=== PATIENT | female | born 1930 | race Hispanic/Latino ===

== ENCOUNTER 2017-12-19 08:39 | Emergency (ER) | payer MEDICARE ==
[2017-12-19 09:33] LABS: #Eosinphils 0.1 thou/uL (0.0-0.7); #Lymphocytes 0.9 thou/uL (1.20-3.40); #Monocytes 0.5 thou/uL (0.11-0.59); #Neutrophils 6.5 thou/uL (1.40-6.50); %Basophils 0.3 % (0.0-1.0); %Eosinophils 1.2 % (0.0-10.0); %Lymphocytes 11.1 % (21.0-51.0); %Neutrophils 81.5 % (42.0-75.0); Mean Corpuscular HGB CONC 33.5 g/dL (32.0-36.0); Mean Corpuscular Hemoglobin 31.8 pg (27.0-31.0); Mean Corpuscular Volume 94.9 fL (78.0-98.0); Mean Platelet Volume 7.3 fL (7.4-10.4); Platelet Count 183 thou/uL (130-400); RBC Distribution Width 12.4 % (11.5-14.5); Red Blood Cell (RBC) Count 4.09 mill/uL (4.20-5.40); White Blood Cell (WBC) Count 7.9 thou/uL (4.8-10.8)
--- NOTE | 2017-12-19 09:44 | RAD ---
FRONTAL VIEW PELVIS: Date: 12/19/17 INDICATION: Injury, pain. No prior comparison. FINDINGS: There is a slight degree of cortical irregularity at the right pubic body. There is osseous demineral ization. Hip joints are maintained. Scattered degenerative change present. IMPRESSION: Minimally displaced fracature at the right pubic body. POS: [facility]
[2017-12-19 09:45] LABS: PTT 29.8 SEC (22.9-36.1); Prothrombin Time 13.5 SEC (12.0-14.7)
--- NOTE | 2017-12-19 09:46 | RAD ---
RIGHT HIP 2 VIEWS: Date: 12/19/17 INDICATION: Post-traumatic pain. Injury. FINDINGS: There is a subtle degree of cortical irregularity at the right pubic body. The right hip joint is dino ntained. There is osseous degenerative change and demineralization. IMPRESSION: 1. No acute fracture of the right hip. 2. Mild cortical irregularity at the right pubic body indicating minimally displaced fracture. POS: [facility]
[2017-12-19 09:50] LABS: ALT (SGPT) 22 U/L (8-55); AST (SGOT) 34 U/L (5-34); Alkaline Phosphatase 80 U/L (40-150); Anion Gap 10 mmol/L (10-20); BUN (Urea Nitrogen) 11 mg/dL (9.8-20.1); Bilirubin, Total 0.5 mg/dL (0.2-1.2); Calc. Creatinine Clearance 0 mL/min (70-130); Calcium 8.7 mg/dL (7.8-10.44); Carbon Dioxide 25 mmol/L (23-31); Chloride 95 mmol/L (98-107); Estimated GFR-MDRD 81; Glucose 98 mg/dL (83-110); Potassium 3.9 mmol/L (3.5-5.1); Sodium 126 mmol/L (136-145)
--- NOTE | 2017-12-19 09:55 | RAD ---
RIGHT ELBOW 4 VIEWS: Date: 12/19/17 HISTORY: Injury and pain. FINDINGS: Bones are osteopenic. No evidence of fracture. No evidence of joint effusion. IMPRESSION: No acute fracture identified. POS: [facility]
--- NOTE | 2017-12-19 09:56 | RAD ---
RIGHT THUMB 3 VIEWS: Date: 12/19/17 HISTORY: Injury and pain. FINDINGS: There is a linear fracture through the distal phalanx of the right thumb. There is no displacement. T he fracture is somewhat oblique, extending through the tuft of the distal phalanx. IMPRESSION: Nondisplaced fracture distal phalanx right thumb. POS: [facility]
--- NOTE | 2017-12-19 10:11 | RAD ---
PORTABLE CHEST: Date: 12/19/17 HISTORY: Injury. FINDINGS: Lung lopez are well aerated and are clear. Heart and mediastinum unremarkable with prominent aortic calcification noted. The osseous structures appear intact. IMPRESSION: No acute abnormality identified. POS: [facility]
--- NOTE | 2017-12-19 10:45 | CT ---
CT BRAIN WITHOUT CONTRAST: Date: 12/19/17 HISTORY: Fall. Trauma to head. Headache. FINDINGS: There are changes of cortical atrophy and chronic small vessel ischemic disease. The ventricular size is appropriate and the basilar cisterns are patent. No evidence of infarct, hemorrhage, midline shif t, or abnormal extra-axial fluid collections are seen. The bony calvarium is intact. The visualized p aranasal sinuses and mastoid air cells are well aerated. There is a scalp contusion in the right post erior parietal region close to the vertex. IMPRESSION: No CT evidence of acute intracranial process. POS: [facility]
--- NOTE | 2017-12-19 11:10 | CT ---
CT CERVICAL SPINE WITHOUT CONTRAST: Date: 12/19/17 HISTORY: Patient was walking and tripped over dog. Fall. Post-traumatic pain. COMPARISON: None. TECHNIQUE: Noncontrast CT cervical spine is performed in the axial plane. Reformatted images are submitted for i nterpretation. FINDINGS: There are nonspecific calcifications in the left and right neck soft tissues. There is no prevertebra l soft tissue swelling. There is atherosclerosis of the visualized great vessels of the neck. There are varying degrees of central canal stenosis and foraminal narrowing on the basis of degenerat everett change. Right thyroid lobe is mildly heterogeneous. Left thyroid lobe is unremarkable. There is a pleural based opacity in the right lung apex, incompletely evaluated. There is diffuse mild bone demineralization. No craniocervical dissociation. Lateral masses of C1 and C2 articulate appropriately. Appropriate art iculation of the facets. There is mild degenerative change of the facets. Predental space is normal. Cervical spine vertebral body height is maintained. There is no fracture. There is mild loss of vertebral body height at T4, which is felt to be chronic. IMPRESSION: 1. No fracture. Additional findings as above. 2. Pleural based opacity in the right lung apex, incompletely evaluated. POS: [facility]
[2017-12-19] MEDS ORDERED: Lidocaine 1% (PF) 30 ML VIAL ONE (13:23)
[2017-12-19] MEDS ORDERED: Adacel (T-DAP) 0.5 ML VIAL ONE (14:00)
[2017-12-19] MEDS ORDERED: Acetaminophen 325 MG TAB ONE (14:00)
== END 2017-12-19 15:00 | disposition home or self-care (01) ==
LOC: ERS 08:39
DX: S09.90XA Unspecified injury of head, initial encounter (principal); S32.501A Unspecified fracture of right pubis, initial encounter for closed fracture; S51.011A Laceration without foreign body of right elbow, initial encounter; S62.524A Nondisplaced fracture of distal phalanx of right thumb, initial encounter for closed fracture; I10 Essential (primary) hypertension; E78.5 Hyperlipidemia, unspecified; W01.0XXA Fall on same level from slipping, tripping and stumbling without subsequent striking against object, initial encounter
CPT/HCPCS: 12001; 36415; 70450; 71045; 72125; 72170; 80053; 85025; 85610; 85730; 90471; 90715; 93005; J2001

== ENCOUNTER 2018-01-15 07:34 | Emergency (ER) | payer MEDICARE ==
[2018-01-15 08:03] LABS: Bilirubin Negative (Negative); Blood, Urine Negative (Negative); Clarity CLOUDY (Clear); Glucose, Urine (Dipstick) Negative (Negative); Leukocyte Moderate (Negative); Nitrite Positive (Negative); Protein, Urine (Dipstick) Negative (Neg-Trace); Specific Gravity, Urine 1.006 (1.002-1.036); Urobilinogen 0.2 mg/dL (0.2-1.0)
[2018-01-15 08:04] LABS: Bacteria/HPF 1+ HPF (None Seen); Hyaline Casts/LPF 0-3 HYALINE CAST LPF (0-3 Hyaline); RBC/HPF 0-3 HPF (0-3); Squamous Epithelial None Seen HPF (0-3); WBC/HPF 21-50 HPF (0-3)
--- NOTE | 2018-01-15 09:20 | RAD ---
PELVIC RADIOGRAPH: Date: 01-15-18 Provided Clinical History: Left lower back pain status post fall. Comparison: 12-19-17 FINDINGS: The left iliac wing is not well visualized on the basis of artifact. The left greater trochanter is i ncompletely included on the image. There is subtle cortical irregularity and lucency involving the ri ght inferior pubic ramus and junction of left superior pubic ramus with acetabulum suspicious for fra cture. No additional fracture is evident. IMPRESSION: Nondisplaced right superior and inferior pubic rami fractures. POS: [facility]
== END 2018-01-15 09:10 | disposition home or self-care (01) ==
LOC: ERS 07:34
DX: N30.90 Cystitis, unspecified without hematuria (principal); M54.5 Low back pain; I10 Essential (primary) hypertension; E78.5 Hyperlipidemia, unspecified; Z79.899 Other long term (current) drug therapy
CPT/HCPCS: 51701; 72170; 81003; 81015; A4353

== ENCOUNTER 2020-01-29 10:43 | Emergency (ER) | payer MEDICARE, BC ==
[2020-01-29] MEDS ORDERED: Ketorolac Tromethamine 30 MG/ML VIAL ONE (11:56)
[2020-01-29] MEDS ORDERED: Ondansetron PF 4 MG/2 ML Vial ONE (11:56)
--- NOTE | 2020-01-29 12:59 | RAD ---
Exam: Chest one view HISTORY:Abdominal pain Comparison: 12/19/2017 FINDINGS: Cardiac silhouette:Enlarged Aorta: Atherosclerosis and elongation Pulmonary vessels: Normal Costophrenic angles: Clear LUNGS: Hyperinflation. Chronic changes. Pneumothorax: None Osseous abnormalities: No acute osseous abnormalities IMPRESSION: 1. COPD. Hyperinflation. 2. Atherosclerosis and elongation of the aorta.
[2020-01-29 13:16] LABS: #Basophils 0.1 thou/uL (0.0-0.2); #Lymphocytes 0.3 thou/uL (1.20-3.40); #Monocytes 0.4 thou/uL (0.11-0.59); #Neutrophils 10.2 thou/uL (1.40-6.50); %Basophils 0.9 % (0.0-1.0); %Lymphocytes 2.5 % (21.0-51.0); %Monocytes 3.9 % (0.0-10.0); %Neutrophils 92.7 % (42.0-75.0); Hemoglobin 15.4 g/dL (12.0-16.0); Mean Corpuscular HGB CONC 33.9 g/dL (32.0-36.0); Mean Corpuscular Hemoglobin 32.4 pg (27.0-31.0); Mean Corpuscular Volume 95.6 fL (78.0-98.0); Mean Platelet Volume 7.9 fL (7.4-10.4); Platelet Count 220 thou/uL (130-400); Red Blood Cell (RBC) Count 4.74 mill/uL (4.20-5.40)
[2020-01-29 13:31] LABS: ALT (SGPT) 16 U/L (8-55); AST (SGOT) 31 U/L (5-34); Alkaline Phosphatase 97 U/L (40-110); Anion Gap 15 mmol/L (10-20); BUN (Urea Nitrogen) 19 mg/dL (9.8-20.1); Bilirubin, Total 0.7 mg/dL (0.2-1.2); Calc. Creatinine Clearance 0 mL/min (70-130); Calcium 9.3 mg/dL (7.8-10.44); Carbon Dioxide 23 mmol/L (23-31); Chloride 91 mmol/L (98-107); Estimated GFR-MDRD 69; Globulin 3.4 g/dL (2.4-3.5); Glucose 122 mg/dL (83-110); Lipase 12 U/L (8-78); Magnesium 2.1 mg/dL (1.6-2.6); Protein, Total 7.4 g/dL (6.0-8.3); Sodium 125 mmol/L (136-145)
[2020-01-29] MEDS ORDERED: Ciprofloxacin 500 MG TAB ONE (14:55)
[2020-01-29] MEDS ORDERED: Aspirin 81 mg Enteric Coated Tablet ONE (14:55)
[2020-01-29] MEDS ORDERED: metroNIDAZOLE 500 MG/100 ML BAG ONE (14:55)
--- NOTE | 2020-01-29 15:09 | CT ---
ABDOMEN AND PELVIC CT SCAN WITH IV CONTRAST: History: Left lower quadrant pain, chills, nausea, vomiting, diarrhea. FINDINGS: Evidence for moderate sized hiatal hernia. Increased linear and interstitial parenchymal changes bila terally with some minimal honeycombing, nonspecific but more favored to be related to some underlying chronic interstitial lung disease. The liver and gallbladder and pancreas appear within normal limit s. The spleen is unremarkable. No evidence for renal hydronephrosis. There is very marked abnormal co lonic wall thickening with pericolonic fat stranding involving most of the left colon from below the level of the splenic flexure down into the rectosigmoid junction region. In the sigmoid colon there a re some diverticulosis changes. There is some minimal free fluid in the abdomen and pelvis. This abno rmal appearance of the colon has more the appearance of acute nonspecific colitis rather than diverti culosis or underlying neoplasm although follow up colonoscopy should be considered after treatment fo r acute colitis and resolution of symptoms to ensure that there is no associated underlying neoplasm. No CT evidence for acute appendicitis. IMPRESSION: Very extensive colonic wall thickening involving the lower left colon into the sigmoid and rectal sig moid junction region, favored to be some type of nonspecific colitis including inflammatory, or infec tious, or even ischemic colitis. There are a few diverticulosis changes in the sigmoid colon but give n this long segment of abnormality I would favor this being colitis rather than diverticulitis. Minim al free fluid. Evidence for hiatal hernia. Other findings as above. POS: [facility]
[2020-01-29 16:21] LABS: Lactic Acid 1.7 mmol/L (0.5-2.2)
--- NOTE | 2020-02-22 14:34 | EKG ---
Test Reason : ABD PAIN Blood Pressure : / mmHG Vent. Rate : 080 BPM Atrial Rate : 080 BPM P-R Int : 162 ms QRS Dur : 080 ms QT Int : 384 ms P-R-T Axes : 050 -04 020 degrees QTc Int : 442 ms Sinus rhythm with frequent Premature ventricular complexes Otherwise normal ECG Confirmed by BRIGHT LANGFORD DO ([id number]), primer expeditor and drier GAVI CAMERON ([id number] on 02/22/2020 2:34:17 PM Referred By: Confirmed By:BRIGHT LANGFORD DO
== END 2020-01-29 16:55 | disposition home or self-care (01) ==
LOC: ERS 10:43
DX: K52.9 Noninfective gastroenteritis and colitis, unspecified (principal); I10 Essential (primary) hypertension; E78.5 Hyperlipidemia, unspecified; Z79.899 Other long term (current) drug therapy
CPT/HCPCS: 36415; 71045; 74177; 80053; 83605; 83690; 83735; 85025; 93005; 96361; 96365; 96375; J1885; J2405

== ENCOUNTER 2020-04-14 19:03 | Inpatient (IN) | payer MEDICARE, BC ==
--- NOTE | 2020-04-14 19:35 | RAD ---
XR Hip Lt 2-3 View INDICATION: Fall with left hip pain COMPARISON: Prior pelvic radiograph dated March 17, 2018 FINDINGS: Bones: There is diffuse osteopenia. No displaced fracture is evident. There is healed right obturator ring fractures. There is enthesopathic change off of the left ischial tuberosity. Hip joint: There is mild osteoarthrosis of the left hip joint. SI joints and symphysis pubis: Radiographically normal. Intrapelvic contents: There are vascular calcifications within the pelvis. Surrounding soft tissues: There are mild vascular calcifications seen involving the visualized vascul ature. IMPRESSION: 1. No acute osseous abnormality. 2. Healed right obturator ring fractures
--- NOTE | 2020-04-14 19:38 | RAD ---
AP view of the pelvis INDICATION: Fall COMPARISON: Prior exam dated January 15, 2018 FINDINGS: Bones: There is diffuse osteopenia. There is healed deformities involving the right obturator ring. Hips: There is mild degenerative change of both hips SI joints and symphysis pubis: There is mild degenerative change of the symphysis pubis and SI joints . Intrapelvic contents: There are moderate vascular calcifications seen involving the visualized vascul ature. IMPRESSION: No acute osseous abnormality.
--- NOTE | 2020-04-14 19:39 | RAD ---
Chest AP view INDICATION: Fall COMPARISON: December 19, 2017 FINDINGS: Lungs: Chronic lung changes are stable Cardiac silhouette: The cardiomediastinal silhouette appears within normal limits. Pulmonary vasculature: Normal Pleural spaces: No pleural effusion or pneumothorax is demonstrated. Upper abdomen: There are moderate vascular calcifications seen involving the visualized vasculature. Osseous structures: There is diffuse osteopenia. There is stable healed deformity involving the prox imal right humeral shaft. There is thoracolumbar scoliosis. Additional findings: None. IMPRESSION: No acute cardiopulmonary abnormality.
[2020-04-14 19:58] LABS: #Lymphocytes 0.6 thou/uL (1.20-3.40); #Monocytes 0.4 thou/uL (0.11-0.59); #Neutrophils 4.6 thou/uL (1.40-6.50); %Basophils 0.3 % (0.0-1.0); %Eosinophils 0.8 % (0.0-10.0); %Lymphocytes 10.9 % (21.0-51.0); %Monocytes 6.3 % (0.0-10.0); %Neutrophils 81.7 % (42.0-75.0); Hemoglobin 12.6 g/dL (12.0-16.0); Mean Corpuscular HGB CONC 34.1 g/dL (32.0-36.0); Mean Corpuscular Hemoglobin 32.1 pg (27.0-31.0); Mean Corpuscular Volume 94.1 fL (78.0-98.0); Mean Platelet Volume 7.7 fL (7.4-10.4); Platelet Count 216 thou/uL (130-400); RBC Distribution Width 12.8 % (11.5-14.5); Red Blood Cell (RBC) Count 3.93 mill/uL (4.20-5.40); White Blood Cell (WBC) Count 5.7 thou/uL (4.8-10.8)
[2020-04-14 20:25] LABS: ALT (SGPT) 16 U/L (8-55); AST (SGOT) 31 U/L (5-34); Alkaline Phosphatase 87 U/L (40-110); Anion Gap 15 mmol/L (10-20); BUN (Urea Nitrogen) 17 mg/dL (9.8-20.1); Bilirubin, Total 0.3 mg/dL (0.2-1.2); Calc. Creatinine Clearance 0 mL/min (70-130); Calcium 8.3 mg/dL (7.8-10.44); Carbon Dioxide 21 mmol/L (23-31); Chloride 94 mmol/L (98-107); Estimated GFR-MDRD 76; Globulin 3.1 g/dL (2.4-3.5); Glucose 106 mg/dL (83-110); Potassium 3.9 mmol/L (3.5-5.1); Protein, Total 7.1 g/dL (6.0-8.3); Sodium 126 mmol/L (136-145)
--- NOTE | 2020-04-14 20:35 | CT ---
CT Brain WO Con: 04/14/2020 8:20 PM CLINICAL HISTORY: Fall. IMAGING TECHNIQUE: Multiple CT images were obtained of the brain without IV contrast. COMPARISON: Prior exam dated December 19, 2017 FINDINGS: BRAIN: Evidence of acute infarct: None. Evidence of chronic ischemic change:There is worsening moderate chronic small vessel white matter isc hemic change. There is an interval remote lacunar infarct involving the right globus pallidus. There is generalized cerebral and cerebellar atrophy. Evidence of intracranial hemorrhage: None. Evidence of midline shift: Third ventricle and septum pellucidum are midline. Ventricles: Normal. No hydrocephalus. SKULL: Intact. VISUALIZED PARANASAL SINUSES: There is mild mucosal thickening involving the ethmoid air cells. MASTOID AIR CELLS: Clear. EXTRACRANIAL SOFT TISSUES: Normal. IMPRESSION: 1. No acute intracranial abnormality. 2. Worsening moderate chronic small vessel white matter ischemic change with an interval remote lacun ar infarct involving the right globus pallidus. 3. Mild to moderate generalized cerebral and cerebellar atrophy.
--- NOTE | 2020-04-14 20:38 | CT ---
CT Cervical Spine WO Con Indication: Fall with neck injury COMPARISON: Prior CT cervical spine dated December 19, 2017 FINDINGS: Fracture: None. Spinal alignment: Slight anterior translation of C4-C5 is stable and likely degenerative. Craniocervical junction: Within normal limits. Vertebral body heights: Maintained. Cervical spine degenerative change: Mild spondylosis of the cervical spine is similar. Lung apices: Stable mild pleural parenchymal scarring. Calcifications involving the soft tissues of t he parotid region are stable. IMPRESSION: No acute osseous abnormality.
[2020-04-14 20:52] LABS: Bacteria/HPF 4+ HPF (None Seen); Bilirubin Negative (Negative); Blood, Urine Trace (Negative); Clarity Clear (Clear); Glucose, Urine (Dipstick) Normal (Negative); Ketone, Urine Negative (Negative); Leukocyte 25 Leu/uL (Negative); Nitrite 2+ (Negative); Protein, Urine (Dipstick) 20 mg/dL (Neg-Trace); RBC/HPF 0-3 HPF (0-3); Renal Epithelial 0-3 HPF (None Seen); Squamous Epithelial 0-3 HPF (0-3); Urobilinogen Normal mg/dL (Less than 2); pH, Urine 7.5 (5.0-9.0)
[2020-04-14] MEDS ORDERED: Aspirin Chewable 81 MG TAB ONE (21:05)
[2020-04-14] MEDS ORDERED: cefTRIAXone\\ROCEPHIN 2 GM VIAL ONE (21:05)
[2020-04-14 21:39] LABS: Magnesium 1.8 mg/dL (1.6-2.6)
[2020-04-14 21:55] LABS: Phosphorus 2.5 mg/dL (2.3-4.7)
[2020-04-14 23:13] LABS: Troponin I 0.017 ng/mL (< 0.028)
[2020-04-14] MEDS ORDERED: Ondansetron ODT 4 MG TAB SL PRN (23:45)
[2020-04-14] MEDS ORDERED: Acetaminophen 325 MG TAB PO PRN (23:45)
[2020-04-14] MEDS ORDERED: Ondansetron PF 4 MG/2 ML Vial IVP PRN (23:45)
[2020-04-14] MEDS ORDERED: Sodium Chloride 0.9% 1,000 ML IV SCH (23:45)
[2020-04-15] MEDS ORDERED: HYDROcodone/Acetaminophen 5/325 mg Tablet PO PRN ×2 (00:22→15:17)
[2020-04-15] MEDS ORDERED: Acetaminophen 650 MG Suppository PR PRN (00:22)
--- NOTE | 2020-04-15 00:41 | PDOC.HHP ---
Hospitalist HPI - History of Present Illness fall History of Present Illness: Case of an 89y/o female with pmhx of htn and hld who comes to hospital complaining of hip pain. apparently was on her usual state of health patient after fall prior at 4 PM today. The patient reports she was walking out to her mailbox when she stepped on unlevel ground and lost her balance, falling backwards and landing on her left hip and her head. The patient denies any LOC, dizziness, syncope, nausea, vomiting, chest pain, shortness of breath, palpitations, abdominal pain, numbness, tingling, weakness, or other symptoms at this time. Patient reports she did hit her head but is not having any pain to her head or neck at this time. Patient denies being on any blood thinners. Patient lives with her son however during the day she reports she is alone. She states that she was on the ground for 2.5 hours. Hospitalist ROS - Review of Systems All other systems reviewed; all pertinent +/- noted in HPI/Subj - Medication Medications: Active Medications Generic Name Dose Route Start Last Admin Trade Name Freq PRN Reason Stop Dose Admin Acetaminophen 650 mg 04/14/20 23:45 04/15/20 00:20 Acetaminophen 325 Mg Tab PO 04/15/20 10:00 650 mg Q4H PRN Administration Headache/Fever or Pain Ondansetron HCl 4 mg 04/14/20 23:45 04/15/20 00:21 Ondansetron Odt 4 Mg Tab SL 04/15/20 10:00 4 mg Q6H PRN Administration Nausea/Vomiting Hospitalist History - Past Surgical History Past Surgical History: reports: Cataract Removal - Family History Family History: reports: no pertinent history - Social History Smoking Status: Never smoker Alcohol: reports: None Drugs: reports: none - Exam General Appearance: NAD, awake alert Eye: PERRL, anicteric sclera ENT: normocephalic atraumatic, no oropharyngeal lesions Neck: supple, symmetric, no JVD, no thyromegaly Heart: RRR, no murmur, no gallops, no rubs Respiratory: CTAB, no wheezes, no rales Gastrointestinal: soft, non-tender, non-distended, normal bowel sounds Extremities: no cyanosis, no clubbing, no edema Skin: normal turgor, no lesions, no rashes Neurological: cranial nerve grossly intact, normal sensation to touch, no weakness Musculoskeletal: normal tone, normal strength, no muscle wasting Psychiatric: normal affect, normal behavior, A&O x 3 Hospitalist Results - Labs Result Diagrams: 04/14/20 19:50 04/14/20 19:50 Lab results: WBC 5.7 thou/uL (4.8-10.8) 04/14/20 19:50 Hgb 12.6 g/dL (12.0-16.0) 04/14/20 19:50 Hct 37.0 % (36.0-47.0) 04/14/20 19:50 MCV 94.1 fL (78.0-98.0) 04/14/20 19:50 Plt Count 216 thou/uL (130-400) 04/14/20 19:50 Neutrophils % 81.7 % (42.0-75.0) H 04/14/20 19:50 Sodium 126 mmol/L (136-145) L 04/14/20 19:50 Potassium 3.9 mmol/L (3.5-5.1) 04/14/20 19:50 Chloride 94 mmol/L (98-107) L 04/14/20 19:50 Carbon Dioxide 21 mmol/L (23-31) L 04/14/20 19:50 BUN 17 mg/dL (9.8-20.1) 04/14/20 19:50 Creatinine 0.72 mg/dL (0.6-1.1) 04/14/20 19:50 Glucose 106 mg/dL (83-110) 04/14/20 19:50 Calcium 8.3 mg/dL (7.8-10.44) 04/14/20 19:50 Total Bilirubin 0.3 mg/dL (0.2-1.2) 04/14/20 19:50 AST 31 U/L (5-34) 04/14/20 19:50 ALT 16 U/L (8-55) 04/14/20 19:50 Alkaline Phosphatase 87 U/L (40-110) 04/14/20 19:50 Creatine Kinase 132 U/L (29-168) 04/14/20 19:55 Troponin I 0.017 ng/mL (< 0.028) 04/14/20 22:25 Serum Total Protein 7.1 g/dL (6.0-8.3) 04/14/20 19:50 Albumin 4.0 g/dL (3.4-4.8) 04/14/20 19:50 Urine Ketones Negative mg/dL (Negative) 04/14/20 20:24 Urine Blood Trace (Negative) A 04/14/20 20:24 Urine Nitrite 2+ (Negative) A 04/14/20 20:24 Ur Leukocyte Esterase 25 Mike/uL (Negative) A 04/14/20 20:24 Urine RBC 0-3 HPF (0-3) 04/14/20 20:24 Urine WBC 4-6 HPF (0-3) A 04/14/20 20:24 Ur Squamous Epith Cells 0-3 HPF (0-3) 04/14/20 20:24 Urine Bacteria 4+ HPF (None Seen) A 04/14/20 20:24 Hospitalist H&P A/P - Problem (1) Hyponatremia Code(s): E87.1 - HYPO-OSMOLALITY AND HYPONATREMIA Status: Acute (2) Fall Code(s): W19.XXXA - UNSPECIFIED FALL, INITIAL ENCOUNTER Status: Acute (3) UTI (urinary tract infection) Status: Acute (4) HTN (hypertension) Code(s): I10 - ESSENTIAL (PRIMARY) HYPERTENSION Status: Acute (5) HLD (hyperlipidemia) Code(s): E78.5 - HYPERLIPIDEMIA, UNSPECIFIED Status: Acute - Plan Plan: Case of an 89y/o female with the stated pmhx who presents with a fall dx with uti and hyponatremia hyponatremia - f/u osmolality - f/u tsh - ivfs uti - u/a consistent w uti - started on rocephin - f/u u/c hnt - continue home meds - labetalol prn hld - continue statin
[2020-04-15] MEDS: Labetalol HCl 100 MG/20 ML VIAL SLOW IVP SCH ×2 (01:42→01:53)
[2020-04-15] MEDS: Sodium Chloride 0.9% 1,000 ML IV SCH (01:44)
[2020-04-15] MEDS ORDERED: Labetalol HCl 100 MG/20 ML VIAL SLOW IVP SCH (02:15)
[2020-04-15 02:22] LABS: Troponin I 0.019 ng/mL (< 0.028)
[2020-04-15 05:16] LABS: ALT (SGPT) 15 U/L (8-55); AST (SGOT) 27 U/L (5-34); Albumin 3.5 g/dL (3.4-4.8); Alkaline Phosphatase 80 U/L (40-110); Anion Gap 11 mmol/L (10-20); BUN (Urea Nitrogen) 11 mg/dL (9.8-20.1); Bilirubin, Total 0.2 mg/dL (0.2-1.2); Calc. Creatinine Clearance 43 mL/min (70-130); Calcium 8.4 mg/dL (7.8-10.44); Carbon Dioxide 23 mmol/L (23-31); Chloride 96 mmol/L (98-107); Estimated GFR-MDRD Greater than 90; Globulin 2.9 g/dL (2.4-3.5); Glucose 123 mg/dL (83-110); Potassium 3.3 mmol/L (3.5-5.1); Protein, Total 6.4 g/dL (6.0-8.3); Sodium 127 mmol/L (136-145)
[2020-04-15 05:22] LABS: Band 7 % (5-11); Hemoglobin 11.7 g/dL (12.0-16.0); Lymphocytes 11 % (21-51); MDiff Complete? YES; Mean Corpuscular HGB CONC 34.6 g/dL (32.0-36.0); Mean Corpuscular Hemoglobin 32.3 pg (27.0-31.0); Mean Corpuscular Volume 93.4 fL (78.0-98.0); Mean Platelet Volume 7.8 fL (7.4-10.4); Monocytes 6 % (0-10); Neutrophil 76 % (42-75); Platelet Count 201 thou/uL (130-400); Platelet Morphology Comment Appears Adequate; RBC Distribution Width 12.8 % (11.5-14.5); RBC Morphology Normal; Red Blood Cell (RBC) Count 3.61 mill/uL (4.20-5.40); White Blood Cell (WBC) Count 5.7 thou/uL (4.8-10.8)
[2020-04-15] MEDS ORDERED: Magnesium Sulfate 3 GM in Sodium Chloride 0.9% 100 ML IVPB SCH (08:30)
[2020-04-15] MEDS ORDERED: Potassium Chloride 20 MEQ TAB PO SCH (08:30)
[2020-04-15] MEDS ORDERED: hydrALAZINE 20 MG/ML VIAL SLOW IVP PRN (08:42)
[2020-04-15] MEDS: Enoxaparin Sodium 40 MG/0.4 ML SYRINGE SC SCH (10:16)
[2020-04-15] MEDS: Acetaminophen 325 MG TAB PO PRN (12:05)
--- NOTE | 2020-04-15 15:27 | PDOC.BPN ---
- Brief Progress Note Encounter Date: 04/15/20 Encounter Time: 15:26 Ms. Rodriguez is an 89-year-old woman who was admitted to the hospital after she had a fall at home. 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 She has had multiple imaging studies that did not show any fractures. She does look clinically dehydrated and has multiple electrolyte derangements. She does have UTI with a urine culture now growing gram-negative. She is currently on IV antibiotics. We will work on pain control and I will ask physical therapy to evaluate her and make recommendations.
[2020-04-15] MEDS: Carvedilol 6.25 MG TAB PO SCH (17:29)
[2020-04-15] MEDS: HYDROcodone/Acetaminophen 5/325 mg Tablet PO PRN (19:52)
[2020-04-15] MEDS: cefTRIAXone\\ROCEPHIN 1 GM in Sodium Chloride 0.9% 100 ML IVPB SCH (20:17)
[2020-04-16] MEDS: HYDROcodone/Acetaminophen 5/325 mg Tablet PO PRN ×2 (01:16→05:50)
[2020-04-16] MEDS: Sodium Chloride 0.9% 1,000 ML IV SCH ×3 (01:19→22:19)
[2020-04-16] MEDS: Carvedilol 6.25 MG TAB PO SCH ×2 (08:41→17:04)
[2020-04-16] MEDS: Enoxaparin Sodium 40 MG/0.4 ML SYRINGE SC SCH (08:42)
[2020-04-16 10:48] LABS: Anion Gap 15 mmol/L (10-20); BUN (Urea Nitrogen) 9 mg/dL (9.8-20.1); Calc. Creatinine Clearance 46 mL/min (70-130); Calcium 8.1 mg/dL (7.8-10.44); Carbon Dioxide 18 mmol/L (23-31); Chloride 96 mmol/L (98-107); Estimated GFR-MDRD Greater than 90; Glucose 92 mg/dL (83-110); Potassium 3.7 mmol/L (3.5-5.1); Sodium 125 mmol/L (136-145)
--- NOTE | 2020-04-16 12:04 | PDOC.HOSPP ---
- Subjective Encounter Date: 04/16/20 Encounter Time: 12:00 Subjective: Ms. Rodriguez was seen and evaluated. Urine culture is growing gram-negative rods. She is appropriately on IV antibiotics. We will continue this for now. Her electrolytes are still not quite corrected. We will continue to replace this. - Objective Vital Signs & Weight: Vital Signs (12 hours) Temp Pulse Resp BP BP Pulse Ox 04/16/20 10:00 174/79 H 04/16/20 08:41 214/91 H 04/16/20 08:19 98.2 F 72 16 210/86 H 96 04/16/20 08:00 98.2 F 72 16 210/86 H 96 04/16/20 03:40 97.4 F L 68 16 122/55 L 95 Weight Admit Weight 94 lb 3.408 oz Weight 89 lb 1.6 oz I&O: 04/15/20 04/16/20 04/17/20 07:59 06:59 06:59 Intake Total 240 Output Total Balance 240 Result Diagrams: 04/15/20 04:22 04/16/20 09:50 Radiology Reviewed by me: Yes EKG Reviewed by me: Yes Hospitalist ROS - Review of Systems Constitutional: reports: fever Neurological: reports: weakness - Medication Medications: Active Medications Generic Name Dose Route Start Last Admin Trade Name Freq PRN Reason Stop Dose Admin Acetaminophen 650 mg 04/15/20 00:22 04/15/20 12:05 Acetaminophen 325 Mg Tab PO 650 mg Q4H PRN Administration Headache/Fever/Mild Pain (1-3) Hydrocodone Bitart/Acetaminophen 1 tab 04/15/20 15:29 04/16/20 05:50 Hydrocodone/Acetaminophen 5/325 Mg Tablet PO 1 tab Q6H PRN Administration Moderate Pain (4-6) Carvedilol 6.25 mg 04/15/20 17:00 04/16/20 08:41 Carvedilol 6.25 Mg Tab PO 6.25 mg BID- SURESH Administration Enoxaparin Sodium 40 mg 04/15/20 09:00 04/16/20 08:42 Enoxaparin Sodium 40 Mg/0.4 Ml Syringe SC 40 mg 0900 SURESH Administration Hydralazine HCl 10 mg 04/15/20 08:42 04/15/20 10:16 Hydralazine 20 Mg/Ml Vial SLOW IVP 10 mg Q6H PRN Administration Hypertension Ceftriaxone Sodium 1 gm/ 100 mls @ 200 mls/hr 04/15/20 21:00 04/15/20 20:17 Sodium Chloride IVPB 100 mls Q24HR SURESH Administration Potassium Chloride 40 meq 04/15/20 08:30 04/15/20 10:16 Potassium Chloride 20 Meq Tab PO 04/18/20 08:31 40 meq ONE SURESH Administration - Exam General Appearance: awake alert, ill appearing Eye: PERRL ENT: normocephalic atraumatic, dry oral mucosa Neck: supple, symmetric, no JVD, no thyromegaly, no lymphadenopathy Heart: RRR, no murmur Respiratory: CTAB, no wheezes, no rales, no ronchi, normal chest expansion Gastrointestinal: soft, non-tender, non-distended, normal bowel sounds Extremities: no cyanosis, no clubbing Psychiatric: normal affect, normal behavior, A&O x 3, oriented to person Hosp A/P (1) Fall Code(s): W19.XXXA - UNSPECIFIED FALL, INITIAL ENCOUNTER Status: Acute Plan: Mechanical fall at home. Continue PT, OT evaluations. (2) HTN (hypertension) Code(s): I10 - ESSENTIAL (PRIMARY) HYPERTENSION Status: Acute Qualifiers: Hypertension type: essential hypertension Qualified Code(s): I10 - Essential (primary) hypertension Plan: Blood pressure is better. (3) Hyponatremia Code(s): E87.1 - HYPO-OSMOLALITY AND HYPONATREMIA Status: Acute Plan: We will continue to correct her electrolytes. (4) UTI (urinary tract infection) Status: Acute Qualifiers: Urinary tract infection type: acute cystitis Hematuria presence: without hematuria Qualified Code(s): N30.00 - Acute cystitis without hematuria Plan: I will continue Rocephin for now. Follow-up on the active cultures. - Plan continue antibiotics, PT/OT, DVT proph w/lovenox #1. Hyponatremia. This is being corrected. 2. Mechanical fall at home. No fractures on all the imaging studies. Continue PT, OT evaluations. 3. Urinary tract infection. She is on IV Rocephin and will continue this for now. Follow-up on no active cultures.
[2020-04-16] MEDS ORDERED: Amlodipine 5 MG TAB PO SCH (22:00)
[2020-04-16] MEDS: cefTRIAXone\\ROCEPHIN 1 GM in Sodium Chloride 0.9% 100 ML IVPB SCH (22:13)
[2020-04-16] MEDS: Acetaminophen 325 MG TAB PO PRN (22:15)
[2020-04-17 00:12] LABS: SARS-CoV-2 MS2 Positive; SARS-CoV-2 N Gene Negative; SARS-CoV-2 S Gene Negative; SARS-CoV-2 by NAA Not Detected (Not Detected); SARS-CoV-2 orf1ab Negative
[2020-04-17 04:54] LABS: Anion Gap 13 mmol/L (10-20); BUN (Urea Nitrogen) 7 mg/dL (9.8-20.1); Calc. Creatinine Clearance 44 mL/min (70-130); Calcium 7.7 mg/dL (7.8-10.44); Carbon Dioxide 20 mmol/L (23-31); Chloride 100 mmol/L (98-107); Estimated GFR-MDRD Greater than 90; Glucose 81 mg/dL (83-110); Potassium 3.2 mmol/L (3.5-5.1); Sodium 130 mmol/L (136-145)
[2020-04-17 05:12] LABS: Band 1 % (5-11); Lymphocytes 26 % (21-51); MDiff Complete? YES; Mean Corpuscular HGB CONC 33.9 g/dL (32.0-36.0); Mean Corpuscular Hemoglobin 32.3 pg (27.0-31.0); Mean Corpuscular Volume 95.1 fL (78.0-98.0); Mean Platelet Volume 8.1 fL (7.4-10.4); Monocytes 15 % (0-10); Neutrophil 57 % (42-75); Platelet Count 193 thou/uL (130-400); Platelet Morphology Comment Appears Adequate; RBC Distribution Width 12.9 % (11.5-14.5); Red Blood Cell (RBC) Count 3.71 mill/uL (4.20-5.40); White Blood Cell (WBC) Count 3.1 thou/uL (4.8-10.8)
[2020-04-17] MEDS: Enoxaparin Sodium 40 MG/0.4 ML SYRINGE SC SCH (08:57)
[2020-04-17] MEDS: Carvedilol 6.25 MG TAB PO SCH ×2 (08:57→17:23)
[2020-04-17] MEDS: HYDROcodone/Acetaminophen 5/325 mg Tablet PO PRN (15:14)
--- NOTE | 2020-04-17 15:45 | PDOC.HOSPP ---
- Subjective Encounter Date: 04/17/20 Encounter Time: 15:43 Subjective: Ms. Rodriguez is an 89-year-old who was seen and evaluated today. She is being treated for urinary tract infection and electrolyte derangement. She also suffered a fall at home. She did not sustain any fracture. She is tolerating physical therapy and will likely be a candidate for rehab placement. - Objective Vital Signs & Weight: Vital Signs (12 hours) Temp Pulse Resp BP BP Pulse Ox 04/17/20 15:10 98.0 F 74 14 175/82 H 99 04/17/20 11: 98.0 F 70 14 146/70 H 96 04/17/20 07:25 98.4 F 72 14 136/79 98 Weight Admit Weight 94 lb 3.408 oz Weight 92 lb 4.8 oz I&O: 04/16/20 04/17/20 04/18/20 06:59 06:59 06:59 Intake Total 2580 Output Total 1750 Balance 830 Result Diagrams: 04/17/20 04:04 04/17/20 04:04 Radiology Reviewed by me: Yes EKG Reviewed by me: Yes Hospitalist ROS - Review of Systems Constitutional: reports: weakness, malaise Respiratory: reports: cough, dry Gastrointestinal: reports: nausea Neurological: reports: weakness - Medication Medications: Active Medications Generic Name Dose Route Start Last Admin Trade Name Freq PRN Reason Stop Dose Admin Acetaminophen 650 mg 04/15/20 00:22 04/16/20 22:15 Acetaminophen 325 Mg Tab PO 650 mg Q4H PRN Administration Headache/Fever/Mild Pain (1-3) Hydrocodone Bitart/Acetaminophen 1 tab 04/15/20 15:29 04/17/20 15:14 Hydrocodone/Acetaminophen 5/325 Mg Tablet PO 1 tab Q6H PRN Administration Moderate Pain (4-6) Carvedilol 6.25 mg 04/15/20 17:00 04/17/20 08:57 Carvedilol 6.25 Mg Tab PO 6.25 mg BID-WM SURESH Administration Enoxaparin Sodium 40 mg 04/15/20 09:00 04/17/20 08:57 Enoxaparin Sodium 40 Mg/0.4 Ml Syringe SC 40 mg 0900 SURESH Administration Hydralazine HCl 10 mg 04/15/20 08:42 04/15/20 10:16 Hydralazine 20 Mg/Ml Vial SLOW IVP 10 mg Q6H PRN Administration Hypertension Ceftriaxone Sodium 1 gm/ 100 mls @ 200 mls/hr 04/15/20 21:00 04/16/20 22:13 Sodium Chloride IVPB 100 mls Q24HR SURESH Administration - Exam General Appearance: NAD, awake alert Eye: PERRL ENT: normocephalic atraumatic, no oropharyngeal lesions, moist mucosa Neck: supple, symmetric, no thyromegaly, no lymphadenopathy Heart: RRR, no murmur, no gallops Respiratory: CTAB, no wheezes, no rales, no ronchi, normal chest expansion, no tachypnea Gastrointestinal: soft, non-tender, non-distended, normal bowel sounds, no palpable masses, no hepatomegaly Extremities: no cyanosis, no clubbing Neurological: no new deficit Musculoskeletal: generalized weakness Psychiatric: normal affect, normal behavior, A&O x 3 Hosp A/P (1) Fall Code(s): W19.XXXA - UNSPECIFIED FALL, INITIAL ENCOUNTER Status: Acute Qualifiers: Encounter type: subsequent encounter Qualified Code(s): W19.XXXD - Unspecified fall, subsequent encounter Plan: PT evaluation is ongoing. (2) HTN (hypertension) Code(s): I10 - ESSENTIAL (PRIMARY) HYPERTENSION Status: Acute Qualifiers: Hypertension type: essential hypertension Qualified Code(s): I10 - Essential (primary) hypertension (3) Hyponatremia Code(s): E87.1 - HYPO-OSMOLALITY AND HYPONATREMIA Status: Acute (4) UTI (urinary tract infection) Status: Acute Qualifiers: Urinary tract infection type: acute cystitis Hematuria presence: without hematuria Qualified Code(s): N30.00 - Acute cystitis without hematuria - Plan old records reviewed/req, continue antibiotics, PT/OT, out of bed/ambulate, DVT proph w/lovenox #1. Hyponatremia. This is being corrected. 04/17/2020. This is being corrected. Continue IV fluid. 2. Mechanical fall at home. No fractures on all the imaging studies. Continue PT, OT evaluations. 04/17/2020. She will likely benefit from rehab placement. 3. Urinary tract infection. She is on IV Rocephin and will continue this for now. Follow-up on no active cultures. 04/17/2020. Continue antibiotic as we are doing.
[2020-04-17] MEDS: Milk Of Magnesia 30 ML UDCUP PO PRN (19:01)
[2020-04-17] MEDS: Acetaminophen 325 MG TAB PO PRN (21:35)
[2020-04-17] MEDS: cefTRIAXone\\ROCEPHIN 1 GM in Sodium Chloride 0.9% 100 ML IVPB SCH (21:35)
[2020-04-18] MEDS ORDERED: Labetalol HCl 100 MG/20 ML VIAL SLOW IVP PRN (01:33)
[2020-04-18 04:59] LABS: #Eosinphils 0.1 thou/uL (0.0-0.7); #Lymphocytes 1.1 thou/uL (1.20-3.40); #Monocytes 0.5 thou/uL (0.11-0.59); #Neutrophils 2.4 thou/uL (1.40-6.50); %Basophils 0.2 % (0.0-1.0); %Eosinophils 1.8 % (0.0-10.0); %Lymphocytes 26.9 % (21.0-51.0); %Monocytes 11.2 % (0.0-10.0); %Neutrophils 59.9 % (42.0-75.0); Hemoglobin 12.1 g/dL (12.0-16.0); Mean Corpuscular HGB CONC 33.9 g/dL (32.0-36.0); Mean Corpuscular Hemoglobin 32.4 pg (27.0-31.0); Mean Corpuscular Volume 95.4 fL (78.0-98.0); Mean Platelet Volume 8.1 fL (7.4-10.4); Platelet Count 219 thou/uL (130-400); Red Blood Cell (RBC) Count 3.74 mill/uL (4.20-5.40)
[2020-04-18 05:11] LABS: Anion Gap 14 mmol/L (10-20); BUN (Urea Nitrogen) 9 mg/dL (9.8-20.1); Calc. Creatinine Clearance 46 mL/min (70-130); Calcium 8.2 mg/dL (7.8-10.44); Carbon Dioxide 22 mmol/L (23-31); Chloride 96 mmol/L (98-107); Estimated GFR-MDRD Greater than 90; Glucose 98 mg/dL (83-110); Potassium 4.5 mmol/L (3.5-5.1); Sodium 127 mmol/L (136-145)
[2020-04-18] MEDS: Enoxaparin Sodium 40 MG/0.4 ML SYRINGE SC SCH (08:49)
[2020-04-18] MEDS: Carvedilol 6.25 MG TAB PO SCH ×2 (08:49→17:25)
[2020-04-18] MEDS: HYDROcodone/Acetaminophen 5/325 mg Tablet PO PRN (08:51)
[2020-04-18] MEDS ORDERED: Metoclopramide HCl 10 MG TAB PO PRN (12:00)
--- NOTE | 2020-04-18 12:54 | PQF ---
CLINICAL DOCUMENTATION CLARIFICATION FORM Dear Dr.E. Coon Date: 04/18/20 2593 Please exercise your independent, professional judgment in responding to the clarification form. Clinical indicators are provided on the bottom of this form for your review. Please check appropriate box(es): [ ] Protein Calorie Malnutrition: [ ] Mild [ ] Moderate [ ] Severe [ ] Other Malnutrition (please specify) [ X ] Underweight without malnutrition [ ] Cachexia [ ] Other diagnosis [ ] Unable to determine In addition, please specify: Present on Admission (POA): [ ] Yes [ ] No [ ] Unable to determine For continuity of documentation, please document condition throughout progress notes and discharge summary. Thank You. To be completed by CDI/Coding staff for physician review: CLINICAL INDICATORS - SIGNS / SYMPTOMS / LABS / RESULTS AND LOCATION IN MR Nutrition diagnosis : Malnutrition Related to aging process as evidenced by severe interosseous and temporalis muscle wasting, severe orbital and buccal fat pad wasting suggestive of severe malnutrition in the context of chronic illness (RD assessment/ 04/15) BMI 16.9 RISK FACTORS / RESULTS AND LOCATION IN MR Advanced age ( 89), pt vomiting upon arrival (ED report/ 04-15) TREATMENT / RESULTS AND LOCATION IN MR Dietary consult (04/15) Recommend Ensure Enlive BID (RD/04/15) Moderate Malnutrition (in acute illness) Energy Intake: <75% of estimated energy requirement for > 7 days Weight Loss: 1-2%/1 week; 5%/ 1 month; 7.5%/3 months Other: mild body fat loss; mild muscle mass loss; mild fluid accumulation; Severe Malnutrition (in acute illness) Energy Intake: = 50% of estimated energy requirement for = 5 days Weight Loss: >2%/1 week; >5%/1 month; >7.5%/3 months Other: moderate body fat loss; moderate muscle mass loss; moderate- severe fluid accumulation; measurably reduced underwriting specialist strength Moderate Malnutrition (in chronic illness) Energy Intake: <75% of estimated energy requirement for =1 month Weight Loss: 5%/1 month; 7.5%/3 months; 10%/6 months; 20%/1 year Other: mild body fat loss; mild muscle mass loss; mild fluid accumulation Severe Malnutrition (in chronic illness) Energy Intake: =75% of estimated energy requirement for =1 month Weight Loss: >5%/1 month; >7.5%/3 months; >10%/6 months; >20%/1 year Other: severe body fat loss; severe muscle mass loss; severe fluid accumulation; measurably reduced underwriting specialist strength Thank you! CDS Signature: Yaneth Daley RN Phone #: [phone] Date: 04/18/2020 This is a permanent part of the Medical Record [facility]
--- NOTE | 2020-04-18 13:32 | PDOC.HOSPP ---
- Subjective Encounter Date: 04/18/20 Encounter Time: 13:30 Subjective: Patient is doing very well today when I visited. She has no questions. She is tolerating her antibiotics. Electrolytes have been corrected. She did walk with therapy yesterday. She is asking when she can discharge. She is interested in rehabilitation. I have consulted rehab for an evaluation. - Objective Vital Signs & Weight: Vital Signs (12 hours) Temp Pulse Resp BP Pulse Ox 04/18/20 11:46 97.5 F L 60 20 178/82 H 97 04/18/20 07:21 98.3 F 68 18 131/95 H 99 04/18/20 03:28 98.2 F 70 12 172/83 H 97 04/18/20 01:48 72 164/70 H Weight Admit Weight 94 lb 3.408 oz Weight 92 lb 4.8 oz I&O: 04/17/20 04/18/20 04/19/20 06:59 06:59 06:59 Intake Total 2580 1410 Output Total 1750 900 Balance 830 510 Result Diagrams: 04/18/20 04:17 04/18/20 04:17 Radiology Reviewed by me: Yes EKG Reviewed by me: Yes Hospitalist ROS - Review of Systems ROS unobtainable: due to mental status Constitutional: reports: fever Cardiovascular: reports: chest pain Gastrointestinal: reports: nausea, vomiting Neurological: reports: weakness, change in speech, confusion - Medication Medications: Active Medications Generic Name Dose Route Start Last Admin Trade Name Freq PRN Reason Stop Dose Admin Acetaminophen 650 mg 04/15/20 00:22 04/17/20 21:35 Acetaminophen 325 Mg Tab PO 650 mg Q4H PRN Administration Headache/Fever/Mild Pain (1-3) Hydrocodone Bitart/Acetaminophen 1 tab 04/15/20 15:29 04/18/20 08:51 Hydrocodone/Acetaminophen 5/325 Mg Tablet PO 1 tab Q6H PRN Administration Moderate Pain (4-6) Carvedilol 6.25 mg 04/15/20 17:00 04/18/20 08:49 Carvedilol 6.25 Mg Tab PO 6.25 mg BID-WM SURESH Administration Enoxaparin Sodium 40 mg 04/15/20 09:00 04/18/20 08:49 Enoxaparin Sodium 40 Mg/0.4 Ml Syringe SC 40 mg 0900 SURESH Administration Hydralazine HCl 10 mg 04/15/20 08:42 04/15/20 10:16 Hydralazine 20 Mg/Ml Vial SLOW IVP 10 mg Q6H PRN Administration Hypertension Ceftriaxone Sodium 1 gm/ 100 mls @ 200 mls/hr 04/15/20 21:00 04/17/20 21:35 Sodium Chloride IVPB 100 mls Q24HR SURESH Administration Magnesium Hydroxide 30 ml 04/17/20 15:45 04/17/20 19:01 Milk Of Magnesia 30 Ml Udcup PO 30 ml DAILYPRN PRN Administration Constipation Metoclopramide HCl 5 mg 04/18/20 12:00 04/18/20 13:08 Metoclopramide Hcl 10 Mg Tab PO 5 mg Q6H PRN Administration Nausea - Exam General Appearance: awake alert Eye: PERRL, anicteric sclera ENT: normocephalic atraumatic, no oropharyngeal lesions, moist mucosa Neck: supple, symmetric, no JVD, no thyromegaly, no lymphadenopathy, no carotid bruit Heart: RRR, no murmur, no gallops, normal peripheral pulses Respiratory: CTAB, no wheezes, no rales, no ronchi, normal chest expansion, no tachypnea, normal percussion Gastrointestinal: soft, non-tender, normal bowel sounds Extremities: no cyanosis Neurological: cranial nerve grossly intact, normal sensation to touch, no weakness, no focal deficits Musculoskeletal: normal tone, normal strength, generalized weakness Psychiatric: normal affect, normal behavior, A&O x 3 Hosp A/P (1) Fall Code(s): W19.XXXA - UNSPECIFIED FALL, INITIAL ENCOUNTER Status: Acute Qualifiers: Encounter type: subsequent encounter Qualified Code(s): W19.XXXD - Unspecified fall, subsequent encounter (2) HTN (hypertension) Code(s): I10 - ESSENTIAL (PRIMARY) HYPERTENSION Status: Acute Qualifiers: Hypertension type: essential hypertension Qualified Code(s): I10 - Essential (primary) hypertension (3) Hyponatremia Code(s): E87.1 - HYPO-OSMOLALITY AND HYPONATREMIA Status: Acute (4) UTI (urinary tract infection) Status: Acute Qualifiers: Urinary tract infection type: acute cystitis Hematuria presence: without hematuria Qualified Code(s): N30.00 - Acute cystitis without hematuria - Plan #1. Hyponatremia. This is being corrected. 04/17/2020. This is being corrected. Continue IV fluid. 2. Mechanical fall at home. No fractures on all the imaging studies. Continue PT, OT evaluations. 04/17/2020. She will likely benefit from rehab placement. 04/18/2020. Rehab has been consulted. 3. Urinary tract infection. She is on IV Rocephin and will continue this for now. Follow-up on no active cultures. 04/17/2020. Continue antibiotic as we are doing. 05/15/2020. Follow-up on active cultures.
[2020-04-18] MEDS: cefTRIAXone\\ROCEPHIN 1 GM in Sodium Chloride 0.9% 100 ML IVPB SCH (21:45)
[2020-04-19 04:22] LABS: Anion Gap 12 mmol/L (10-20); BUN (Urea Nitrogen) 6 mg/dL (9.8-20.1); Calc. Creatinine Clearance 47 mL/min (70-130); Carbon Dioxide 25 mmol/L (23-31); Chloride 97 mmol/L (98-107); Estimated GFR-MDRD Greater than 90; Glucose 85 mg/dL (83-110); Potassium 3.5 mmol/L (3.5-5.1); Sodium 130 mmol/L (136-145)
[2020-04-19] MEDS: Enoxaparin Sodium 40 MG/0.4 ML SYRINGE SC SCH (07:56)
[2020-04-19] MEDS: Carvedilol 6.25 MG TAB PO SCH ×2 (07:56→17:01)
[2020-04-19] MEDS ORDERED: hydrALAZINE 25 MG TAB PO SCH (10:30)
--- NOTE | 2020-04-19 16:05 | PDOC.DS.DS ---
Provider - Provider Date of Admission: 04/15/20 14:28 Date of Discharge: 04/19/20 Admitting Provider: Gilmar Pal Consultations: Infectious Disease Primary Care Physician: Jaime Kelly MD Course - Hospital Course Hospital Course: Ms. Rodriguez is an 89-year-old woman who is fairly active at home where she lives with her son presented to the hospital after she apparently suffered a fall. She arrived to the hospital where she was noted to be pretty dehydrated with multiple electrolyte abnormalities. She also had evidence of a urinary tract infection. She was treated with IV antibiotics. She had multiple imaging studies that did not show any evidence of a fracture. She did work with physical therapy and wanted to go to rehab for strengthening. She completed her intravenous antibiotic for a few days and she was discharged with p.o. Macrobid. She will continue her routine home medications. She will discharge today to [facility] in a stable condition. Resuscitation Status: 04/15/20 00:22 Resuscitation Status Routine Resuscitation Status: FULL: Full Resuscitation - Labs Lab Results: 04/18/20 04:17 04/19/20 03:24 Abnormal Lab Results - Last 48 hrs 04/18/20 04:17: Sodium 127 L, Chloride 96 L, Carbon Dioxide 22 L, BUN 9 L, Creatinine 0.56 L 04/18/20 04:17: WBC 4.0 L, RBC 3.74 L, Hct 35.7 L, MCH 32.4 H, Monocytes % 11.2 H, Lymphocytes # 1.1 L 04/19/20 03:24: Sodium 130 L, Chloride 97 L, BUN 6 L, Creatinine 0.55 L Microbiology - Entire Visit 04/14/20 20:24 Urine voided Urine Culture - Final Escherichia coli - Physical Exam Vitals: Vital Signs (12 hours) Temp Pulse Resp BP BP BP Pulse Ox 04/19/20 15:32 97.5 F L 74 16 153/69 H 97 04/19/20 13:39 77 127/64 04/19/20 11:27 98.7 F 69 15 162/74 H 96 04/19/20 10:42 71 161/74 H 04/19/20 10:14 69 139/75 04/19/20 07:31 98.3 F 73 17 166/69 H 97 04/19/20 06:35 72 184/77 H 04/19/20 04:35 72 185/86 H Weight Admit Weight 94 lb 3.408 oz Weight 88 lb 11.2 oz Physical Exam: The patient was seen and examined on the day of discharge. Problem - Problem (1) Fall Code(s): W19.XXXA - UNSPECIFIED FALL, INITIAL ENCOUNTER Status: Acute Qualifiers: Encounter type: subsequent encounter Qualified Code(s): W19.XXXD - Unspecified fall, subsequent encounter (2) HTN (hypertension) Code(s): I10 - ESSENTIAL (PRIMARY) HYPERTENSION Status: Acute Qualifiers: Hypertension type: essential hypertension Qualified Code(s): I10 - Essential (primary) hypertension (3) Hyponatremia Code(s): E87.1 - HYPO-OSMOLALITY AND HYPONATREMIA Status: Acute (4) UTI (urinary tract infection) Status: Acute Qualifiers: Urinary tract infection type: acute cystitis Hematuria presence: without hematuria Qualified Code(s): N30.00 - Acute cystitis without hematuria Plan - Discharge Medications Prescriptions: Nitrofurantoin Macrocrystal [Nitrofurantoin] 100 mg PO BID #14 capsule Home Medications: Medication Instructions Recorded Confirmed Type Dexlansoprazole [Dexilant] 60 mg PO DAILY 04/15/20 04/15/20 History Lisinopril 20 mg PO DAILY 04/15/20 04/15/20 History Pravastatin Sodium 10 mg PO HS 04/15/20 04/15/20 History Carvedilol [Coreg] 12.5 mg PO BID-WM tab 04/19/20 Rx Nitrofurantoin Macrocrystal 100 mg PO BID #14 capsule 04/19/20 Rx [Nitrofurantoin] hydrALAZINE [Apresoline] 25 mg PO BID tab 04/19/20 Rx Allergies: codeine Allergy (Verified 04/15/20 05:44) PER ER NOTES - Discharge Instructions Activity:: Activity as Tolerated Nourishment:: Heart Healthy Diet, No Restrictions Therapies:: Occupational Therapy, Physical Therapy Equipment/Supplies:: Not Applicable IV Therapy:: Not Applicable - Follow up Plan Referrals: RUBÉN Sanchez [facility], Tang Dennis [Other] (Inpatient rehab admit.) Jaime Kelly MD [Primary Care Provider] - Disposition: REHABILITATION INPATIENT Quality - Care Measures CORE MEASURES:: N/A
[2020-04-19] MEDS: hydrALAZINE 25 MG TAB PO SCH (21:44)
[2020-04-19] MEDS: cefTRIAXone\\ROCEPHIN 1 GM in Sodium Chloride 0.9% 100 ML IVPB SCH (21:44)
[2020-04-19] MEDS: HYDROcodone/Acetaminophen 5/325 mg Tablet PO PRN (21:44)
[2020-04-20] MEDS: hydrALAZINE 25 MG TAB PO SCH (08:37)
[2020-04-20] MEDS: Carvedilol 6.25 MG TAB PO SCH ×2 (08:38→18:02)
[2020-04-20] MEDS: Enoxaparin Sodium 40 MG/0.4 ML SYRINGE SC SCH (08:38)
[2020-04-20] MEDS ORDERED: Lisinopril 20 MG TAB PO SCH (11:30)
[2020-04-20 12:11] VITALS: BMI 16.4
[2020-04-20] MEDS: Milk Of Magnesia 30 ML UDCUP PO PRN (14:23)
[2020-04-20] MEDS: Acetaminophen 325 MG TAB PO PRN (14:23)
[2020-04-20 16:32] VITALS: BP 165/76; TEMP 98.1
--- NOTE | 2020-04-20 17:01 | PDOC.HOSPP ---
- Subjective Encounter Date: 04/20/20 Encounter Time: 17:00 Subjective: Ms. Rodriguez is a very pleasant 89-year-old woman who was admitted to the hospital after she had a fall at home. She presented and was admitted for further evaluation. Thankfully she did not have any fracture on multiple im aging studies. She had multiple electrolyte derangements and appeared to be dehydrated. She received aggressive volume resuscitation. In addition she had evidence of a urinary tract infection which responded nicely to IV antibiotics. Because of her need for ongoing therapy she requested to go to a rehab hospital. She was transferred there today to continue skilled therapy. She will discharge home shortly thereafter. She will resume her routine home medications. She will complete p.o. antibiotics for her UTI on outpatient basis. Her urine culture grew out E. coli but this was resistant to ciprofloxacin and Levaquin. - Objective Vital Signs & Weight: Vital Signs (12 hours) Temp Pulse Pulse Pulse Resp BP BP 04/20/20 16:27 98.1 F 18 04/20/20 12:00 98.0 F 80 20 04/20/20 11:45 70 68 154/71 H 158/70 H 04/20/20 10:35 04/20/20 08:00 04/20/20 07:41 98.3 F 73 16 04/20/20 05:06 98.3 F 72 16 BP BP Pulse Ox Pulse Ox Pulse Ox 04/20/20 16:27 165/76 H 98 04/20/20 12:00 158/70 H 98 04/20/20 11:45 97 96 04/20/20 10:35 172/78 H 04/20/20 08:00 97 04/20/20 07:41 189/82 H 97 04/20/20 05:06 174/82 H 96 Weight Admit Weight 94 lb 3.408 oz Weight 89 lb 9.6 oz I&O: 04/19/20 04/20/20 04/21/20 06:59 06:59 06:59 Intake Total 2260 1100 Output Total 1675 500 Balance 585 600 Result Diagrams: 04/18/20 04:17 04/19/20 03:24 Radiology Reviewed by me: Yes EKG Reviewed by me: Yes Hospitalist ROS - Review of Systems Constitutional: reports: weakness, malaise Musculoskeletal: reports: back pain, hand pain - Medication Medications: Active Medications Generic Name Dose Route Start Last Admin Trade Name Freq PRN Reason Stop Dose Admin Acetaminophen 650 mg 04/15/20 00:22 04/20/20 14:23 Acetaminophen 325 Mg Tab PO 650 mg Q4H PRN Administration Headache/Fever/Mild Pain (1-3) Hydrocodone Bitart/Acetaminophen 1 tab 04/15/20 15:29 04/19/20 21:44 Hydrocodone/Acetaminophen 5/325 Mg Tablet PO 1 tab Q6H PRN Administration Moderate Pain (4-6) Carvedilol 12.5 mg 04/19/20 17:00 04/20/20 08:38 Carvedilol 6.25 Mg Tab PO 12.5 mg BID-WM SURESH Administration Enoxaparin Sodium 40 mg 04/15/20 09:00 04/20/20 08:38 Enoxaparin Sodium 40 Mg/0.4 Ml Syringe SC 40 mg 0900 SURESH Administration Hydralazine HCl 10 mg 04/15/20 08:42 04/15/20 10:16 Hydralazine 20 Mg/Ml Vial SLOW IVP 10 mg Q6H PRN Administration Hypertension Hydralazine HCl 25 mg 04/19/20 21:00 04/20/20 08:37 Hydralazine 25 Mg Tab PO 25 mg BID SURESH Administration Ceftriaxone Sodium 1 gm/ 100 mls @ 200 mls/hr 04/15/20 21:00 04/19/20 21:44 Sodium Chloride IVPB 100 mls Q24HR SURESH Administration Labetalol HCl 20 mg 04/18/20 01:33 04/19/20 04:35 Labetalol Hcl 100 Mg/20 Ml Vial SLOW IVP 4 ml Q4H PRN Administration SBP > 180 and HR >/= 70 Magnesium Hydroxide 30 ml 04/17/20 15:45 04/20/20 14:23 Milk Of Magnesia 30 Ml Udcup PO 30 ml DAILYPRN PRN Administration Constipation Metoclopramide HCl 5 mg 04/18/20 12:00 04/18/20 13:08 Metoclopramide Hcl 10 Mg Tab PO 5 mg Q6H PRN Administration Nausea - Exam General Appearance: awake alert Eye: PERRL ENT: moist mucosa Neck: supple, symmetric, no lymphadenopathy, no carotid bruit Heart: RRR, no murmur Respiratory: CTAB, no wheezes, normal chest expansion Gastrointestinal: soft, non-tender, non-distended, normal bowel sounds, no palpable masses Neurological: cranial nerve grossly intact, normal sensation to touch, no weakness, no focal deficits Psychiatric: normal affect, normal behavior, A&O x 3 Hosp A/P (1) Fall Code(s): W19.XXXA - UNSPECIFIED FALL, INITIAL ENCOUNTER Status: Acute Qualifiers: Encounter type: subsequent encounter Qualified Code(s): W19.XXXD - Unspecified fall, subsequent encounter (2) HTN (hypertension) Code(s): I10 - ESSENTIAL (PRIMARY) HYPERTENSION Status: Acute Qualifiers: Hypertension type: essential hypertension Qualified Code(s): I10 - Essential (primary) hypertension (3) Hyponatremia Code(s): E87.1 - HYPO-OSMOLALITY AND HYPONATREMIA Status: Acute (4) UTI (urinary tract infection) Status: Acute Qualifiers: Urinary tract infection type: acute cystitis Hematuria presence: without hematuria Qualified Code(s): N30.00 - Acute cystitis without hematuria - Plan #1. Hyponatremia. This is being corrected. 04/17/2020. This is being corrected. Continue IV fluid. 2. Mechanical fall at home. No fractures on all the imaging studies. Continue PT, OT evaluations. 04/17/2020. She will likely benefit from rehab placement. 04/18/2020. Rehab has been consulted. 3. Urinary tract infection. She is on IV Rocephin and will continue this for now. Follow-up on all active cultures. 04/17/2020. Continue antibiotic as we are doing. 04/18/2020. Follow-up on active cultures. 04/20/2020. Urine culture grew E. coli This was resistant to Cipro and Levaquin.
[2020-04-20 17:34] LABS: Anion Gap 13 mmol/L (10-20); BUN (Urea Nitrogen) 11 mg/dL (9.8-20.1); Calc. Creatinine Clearance 45 mL/min (70-130); Calcium 8.3 mg/dL (7.8-10.44); Carbon Dioxide 26 mmol/L (23-31); Chloride 93 mmol/L (98-107); Estimated GFR-MDRD Greater than 90; Glucose 114 mg/dL (83-110); Magnesium 3.4 mg/dL (1.6-2.6); Potassium 3.9 mmol/L (3.5-5.1); Sodium 128 mmol/L (136-145)
[2020-04-21] MEDS ORDERED: Lisinopril 20 MG TAB PO SCH (09:00)
--- NOTE | 2020-04-22 16:04 | EKG ---
Test Reason : Blood Pressure : / mmHG Vent. Rate : 083 BPM Atrial Rate : 083 BPM P-R Int : 198 ms QRS Dur : 082 ms QT Int : 388 ms P-R-T Axes : 034 018 056 degrees QTc Int : 455 ms Normal sinus rhythm Normal ECG Confirmed by SUDHIR NICHOLSON, GAYLE ([id number]), supervising editor news reel [id number] [email or web address] [id number]) on 04/22/2020 4:03:46 PM Referred By: Confirmed By:GAYLE PEGUERO MD
== END 2020-04-20 20:24 | DRG 690 ==
LOC: ERS 19:03 → 2NO 22:20 → OBSVTOIN 04-15 14:28
PROVIDERS: ADMIT Internal Medicine; ATTEND Hospitalist
DX: N30.00 Acute cystitis without hematuria (principal); E87.1 Hypo-osmolality and hyponatremia; Z16.29 Resistance to other single specified antibiotic; Z68.1 Body mass index [BMI] 19.9 or less, adult; Z20.828 Contact with and (suspected) exposure to other viral communicable diseases; I10 Essential (primary) hypertension; E78.5 Hyperlipidemia, unspecified; B96.20 Unspecified Escherichia coli [E. coli] as the cause of diseases classified elsewhere; R63.6 Underweight; Z88.5 Allergy status to narcotic agent; Z79.899 Other long term (current) drug therapy
CPT/HCPCS: 36415; 70450; 71045; 72125; 72170; 80048; 80053; 81003; 81015; 82550; 83735; 83930; 84100; 84443; 84484; 85007; 85025; 85027; 87077; 87086; 87186; 87635; 93005; 96365; 96372; 96375; 96376; G0378; J0360; J0696; J1650; J3475; J3490; Q0162; U0003

== ENCOUNTER 2020-09-19 10:13 | Inpatient (IN) | payer MEDICARE, BC ==
[2020-09-19] MEDS ORDERED: Fentanyl 100 MCG/2 ML VIAL ONE ×3 (11:03→16:09)
[2020-09-19 13:15] LABS: #Lymphocytes 0.6 thou/uL (1.20-3.40); #Monocytes 0.6 thou/uL (0.11-0.59); #Neutrophils 10.6 thou/uL (1.40-6.50); %Basophils 0.1 % (0.0-1.0); %Eosinophils 0.3 % (0.0-10.0); %Monocytes 5.4 % (0.0-10.0); %Neutrophils 89.2 % (42.0-75.0); Hemoglobin 11.5 g/dL (12.0-16.0); Mean Corpuscular HGB CONC 34.1 g/dL (32.0-36.0); Mean Corpuscular Hemoglobin 33.6 pg (27.0-31.0); Mean Corpuscular Volume 98.6 fL (78.0-98.0); Mean Platelet Volume 7.2 fL (7.4-10.4); Platelet Count 221 thou/uL (130-400); RBC Distribution Width 12.4 % (11.5-14.5); Red Blood Cell (RBC) Count 3.41 mill/uL (4.20-5.40); White Blood Cell (WBC) Count 11.9 thou/uL (4.8-10.8)
[2020-09-19 13:37] LABS: ALT (SGPT) 33 U/L (8-55); AST (SGOT) 43 U/L (5-34); Albumin 4.1 g/dL (3.4-4.8); Alkaline Phosphatase 90 U/L (40-110); Anion Gap 13 mmol/L (10-20); BUN (Urea Nitrogen) 16 mg/dL (9.8-20.1); Bilirubin, Total 0.3 mg/dL (0.2-1.2); Calc. Creatinine Clearance 0 mL/min (70-130); Calcium 8.2 mg/dL (7.8-10.44); Carbon Dioxide 22 mmol/L (23-31); Chloride 98 mmol/L (98-107); Globulin 2.8 g/dL (2.4-3.5); Glucose 101 mg/dL (83-110); Potassium 4.1 mmol/L (3.5-5.1); Protein, Total 6.9 g/dL (5.8-8.1); Sodium 129 mmol/L (136-145)
[2020-09-19 14:01] LABS: Bacteria/HPF 1+ HPF (None Seen); Bilirubin Negative (Negative); Blood, Urine Negative (Negative); Clarity Clear (Clear); Glucose, Urine (Dipstick) Normal (Negative); Ketone, Urine Negative (Negative); Leukocyte 75 Leu/uL (Negative); Nitrite 2+ (Negative); Protein, Urine (Dipstick) Negative (Neg-Trace); RBC/HPF 0-3 HPF (0-3); Squamous Epithelial None Seen HPF (0-3); Urobilinogen Normal mg/dL (Less than 2); WBC/HPF 0-3 HPF (0-3); pH, Urine 6.5 (5.0-9.0)
[2020-09-19] MEDS ORDERED: cefTRIAXone\\ROCEPHIN 1 GM VIAL ONE (14:22)
[2020-09-19] MEDS ORDERED: Ondansetron PF 4 MG/2 ML Vial ONE (15:06)
[2020-09-19 17:26] VITALS: BMI 17.2
[2020-09-19] MEDS ORDERED: Ondansetron PF 4 MG/2 ML Vial IVP SCH (17:30)
[2020-09-19] MEDS ORDERED: Ondansetron PF 4 MG/2 ML Vial IVP PRN (17:33)
[2020-09-19] MEDS ORDERED: Dextrose 5% in Water 1,000 ML IV PRN (17:33)
[2020-09-19] MEDS ORDERED: Dextrose 50% Abboject 50 ML SYRINGE SLOW IVP PRN (17:33)
[2020-09-19] MEDS ORDERED: Cyclobenzaprine 10 MG TAB PO PRN (17:36)
[2020-09-19] MEDS: Sodium Chloride 0.9% 1,000 ML IV SCH (17:55)
[2020-09-19] MEDS: Acetaminophen 325 MG TAB PO SCH ×2 (17:56→23:29)
[2020-09-19] MEDS ORDERED: traMADol HCl 50 MG TAB PO PRN (18:33)
[2020-09-19] MEDS: Gabapentin 100 MG CAP PO SCH (20:17)
[2020-09-19] MEDS: Simvastatin 5 MG TAB PO SCH (20:17)
[2020-09-19] MEDS: Nitrofurantoin Monohyd/M-Cryst 100 MG CAP PO SCH (20:38)
[2020-09-19] MEDS ORDERED: Non-Formulary Item 1 EACH (Hydralazine Hcl [Hydralazine Hcl] 50 MG Tablet) PO SCH (21:00)
[2020-09-19] MEDS ORDERED: FLU VACC QS2020-21(65YR UP)/PF 240 MCG/0.7 ML SYRINGE IM ONE (21:00)
[2020-09-20 02:04] LABS: SARS-CoV-2 PCR by NAA Not Detected (NotDetected)
[2020-09-20] MEDS: Acetaminophen 325 MG TAB PO SCH ×4 (05:08→23:36)
[2020-09-20] MEDS: Sodium Chloride 0.9% 1,000 ML IV SCH (05:09)
[2020-09-20 05:56] LABS: #Lymphocytes 0.8 thou/uL (1.20-3.40); #Monocytes 0.4 thou/uL (0.11-0.59); #Neutrophils 2.2 thou/uL (1.40-6.50); %Basophils 0.9 % (0.0-1.0); %Eosinophils 0.5 % (0.0-10.0); %Lymphocytes 22.2 % (21.0-51.0); %Monocytes 11.7 % (0.0-10.0); %Neutrophils 64.8 % (42.0-75.0); Hemoglobin 11.6 g/dL (12.0-16.0); Mean Corpuscular HGB CONC 33.6 g/dL (32.0-36.0); Mean Corpuscular Hemoglobin 33.2 pg (27.0-31.0); Mean Corpuscular Volume 98.7 fL (78.0-98.0); Mean Platelet Volume 7.3 fL (7.4-10.4); Platelet Count 218 thou/uL (130-400); RBC Distribution Width 12.4 % (11.5-14.5); Red Blood Cell (RBC) Count 3.51 mill/uL (4.20-5.40); White Blood Cell (WBC) Count 3.4 thou/uL (4.8-10.8)
[2020-09-20 06:17] LABS: Anion Gap 9 mmol/L (10-20); BUN (Urea Nitrogen) 8 mg/dL (9.8-20.1); Calc. Creatinine Clearance 44 mL/min (70-130); Calcium 8.4 mg/dL (7.8-10.44); Carbon Dioxide 26 mmol/L (23-31); Chloride 102 mmol/L (98-107); Glucose 82 mg/dL (83-110); Magnesium 1.9 mg/dL (1.6-2.6); Phosphorus 2.8 mg/dL (2.3-4.7); Sodium 133 mmol/L (136-145)
[2020-09-20] MEDS: Saccharomyces boulardii 250 MG CAP PO SCH (08:00)
[2020-09-20] MEDS: Lisinopril 20 MG TAB PO SCH (08:01)
[2020-09-20] MEDS: Gabapentin 100 MG CAP PO SCH ×3 (08:01→20:17)
[2020-09-20] MEDS: Amlodipine 5 MG TAB PO SCH (08:01)
[2020-09-20 08:03] LABS: Mean Corpuscular HGB CONC 34.5 g/dL (32.0-36.0); Mean Corpuscular Hemoglobin 34.2 pg (27.0-31.0); Mean Corpuscular Volume 99.1 fL (78.0-98.0); Mean Platelet Volume 7.4 fL (7.4-10.4); Platelet Count 201 thou/uL (130-400); RBC Distribution Width 12.2 % (11.5-14.5); Red Blood Cell (RBC) Count 3.23 mill/uL (4.20-5.40); White Blood Cell (WBC) Count 3.8 thou/uL (4.8-10.8)
[2020-09-20] MEDS: Polyethylene Glycol 3350 17 GM Packet PO SCH (08:03)
[2020-09-20] MEDS: Nitrofurantoin Monohyd/M-Cryst 100 MG CAP PO SCH ×2 (08:03→20:17)
[2020-09-20 08:15] LABS: Eosinophils 2 % (0-10); Lymphocytes 16 % (21-51); MDiff Complete? YES; Monocytes 10 % (0-10); Neutrophil 67 % (42-75); Platelet Morphology Comment Appears Adequate; Reactive Lymphocytes 5 % (0-10)
[2020-09-20] MEDS ORDERED: Scopolamine 1.5 mg/72 hour Patch TD SCH (11:00)
[2020-09-20] MEDS ORDERED: MAGNESIUM SULFATE IVPB SCH (13:00)
[2020-09-20] MEDS ORDERED: SODIUM PHOSPHATE IVPB SCH (13:00)
[2020-09-20] MEDS ORDERED: SODIUM CHLORIDE 0.9% IVPB SCH (13:00)
[2020-09-20] MEDS ORDERED: Dextrose 5% in Water 1,000 ML IV PRN (14:20)
[2020-09-20] MEDS ORDERED: Dextrose 50% Abboject 50 ML SYRINGE SLOW IVP PRN (14:20)
[2020-09-20] MEDS: Simvastatin 5 MG TAB PO SCH (20:17)
[2020-09-21] MEDS: Acetaminophen 325 MG TAB PO SCH ×3 (04:59→18:41)
[2020-09-21 06:57] LABS: ALT (SGPT) 20 U/L (8-55); AST (SGOT) 26 U/L (5-34); Albumin 3.4 g/dL (3.4-4.8); Alkaline Phosphatase 63 U/L (40-110); Anion Gap 9 mmol/L (10-20); BUN (Urea Nitrogen) 12 mg/dL (9.8-20.1); Bilirubin, Total 0.4 mg/dL (0.2-1.2); Calc. Creatinine Clearance 36 mL/min (70-130); Calcium 7.9 mg/dL (7.8-10.44); Carbon Dioxide 24 mmol/L (23-31); Chloride 101 mmol/L (98-107); Globulin 2.5 g/dL (2.4-3.5); Glucose 80 mg/dL (83-110); Lipase 13 U/L (8-78); Potassium 3.6 mmol/L (3.5-5.1); Protein, Total 5.9 g/dL (5.8-8.1); Sodium 130 mmol/L (136-145)
[2020-09-21 07:14] VITALS: TEMP 97.9
[2020-09-21] MEDS: Nitrofurantoin Monohyd/M-Cryst 100 MG CAP PO SCH (08:12)
[2020-09-21] MEDS: Lisinopril 20 MG TAB PO SCH (08:13)
[2020-09-21] MEDS: Polyethylene Glycol 3350 17 GM Packet PO SCH (08:13)
[2020-09-21] MEDS: Amlodipine 5 MG TAB PO SCH (08:13)
[2020-09-21] MEDS: Gabapentin 100 MG CAP PO SCH ×2 (08:13→15:57)
[2020-09-21] MEDS: Saccharomyces boulardii 250 MG CAP PO SCH (08:13)
[2020-09-21 08:14] VITALS: BP 166/71
== END 2020-09-21 18:30 | DRG 552 ==
LOC: ERS 10:13 → T4-B 15:25 → OBSVTOIN 09-20 14:19
PROVIDERS: ADMIT Surgery; ATTEND Surgery
DX: S22.040A Wedge compression fracture of fourth thoracic vertebra, initial encounter for closed fracture (principal); E87.1 Hypo-osmolality and hyponatremia; N39.0 Urinary tract infection, site not specified; S22.050A Wedge compression fracture of T5-T6 vertebra, initial encounter for closed fracture; E78.5 Hyperlipidemia, unspecified; R12 Heartburn; I10 Essential (primary) hypertension; W18.30XA Fall on same level, unspecified, initial encounter; Z79.899 Other long term (current) drug therapy; Z98.49 Cataract extraction status, unspecified eye
CPT/HCPCS: 36415; 70450; 72125; 72128; 80048; 80053; 81003; 81015; 82607; 82746; 83690; 83735; 84100; 85025; 87077; 87086; 87186; 87635; 94760; 96365; 96375; 96376; G0378; J0696; J2405; J3010; U0003; U0005

== ENCOUNTER 2020-10-12 13:53 | Outpatient (CLI) | payer MEDICARE, BC | END 2020-10-12 13:54 | disposition home or self-care (01) | LOC: TBSIIMAG 13:53 | PROVIDERS: ATTEND Neurological Surgery | DX: S22.009A Unspecified fracture of unspecified thoracic vertebra, initial encounter for closed fracture (principal); S32.009A Unspecified fracture of unspecified lumbar vertebra, initial encounter for closed fracture; M48.54XD Collapsed vertebra, not elsewhere classified, thoracic region, subsequent encounter for fracture with routine healing | CPT/HCPCS: 72072 ==

== ENCOUNTER 2020-12-21 15:31 | Inpatient (IN) | payer MEDICARE, BC ==
[2020-12-21 16:57] LABS: #Lymphocytes 0.5 thou/uL (1.20-3.40); #Monocytes 0.4 thou/uL (0.11-0.59); #Neutrophils 2.8 thou/uL (1.40-6.50); %Basophils 0.1 % (0.0-1.0); %Eosinophils 0.6 % (0.0-10.0); %Lymphocytes 12.5 % (21.0-51.0); %Monocytes 9.5 % (0.0-10.0); %Neutrophils 77.2 % (42.0-75.0); Hemoglobin 10.2 g/dL (12.0-16.0); Mean Corpuscular Hemoglobin 34.5 pg (27.0-31.0); Mean Corpuscular Volume 98.5 fL (78.0-98.0); Mean Platelet Volume 7.3 fL (7.4-10.4); Platelet Count 186 thou/uL (130-400); RBC Distribution Width 12.4 % (11.5-14.5); Red Blood Cell (RBC) Count 2.96 mill/uL (4.20-5.40); White Blood Cell (WBC) Count 3.6 thou/uL (4.8-10.8)
[2020-12-21 17:16] LABS: ALT (SGPT) 12 U/L (8-55); AST (SGOT) 24 U/L (5-34); Albumin 3.6 g/dL (3.4-4.8); Alkaline Phosphatase 70 U/L (40-110); Anion Gap 10 mmol/L (10-20); BUN (Urea Nitrogen) 17 mg/dL (9.8-20.1); Bilirubin, Total 0.3 mg/dL (0.2-1.2); Calc. Creatinine Clearance 0 mL/min (70-130); Carbon Dioxide 20 mmol/L (23-31); Chloride 98 mmol/L (98-107); Globulin 2.6 g/dL (2.4-3.5); Glucose 94 mg/dL (83-110); Potassium 4.1 mmol/L (3.5-5.1); Protein, Total 6.2 g/dL (5.8-8.1); Sodium 124 mmol/L (136-145)
[2020-12-21 17:32] LABS: Bacteria/HPF 4+ HPF (None Seen); Bilirubin Negative (Negative); Blood, Urine Negative (Negative); Clarity Turbid (Clear); Glucose, Urine (Dipstick) Normal (Negative); Ketone, Urine Trace mg/dL (Negative); Leukocyte 500 Leu/uL (Negative); Nitrite 1+ (Negative); Protein, Urine (Dipstick) Negative (Neg-Trace); Specific Gravity, Urine 1.012 (1.002-1.036); Urobilinogen Normal mg/dL (Less than 2); WBC/HPF Greater than 50 HPF (0-3)
[2020-12-21] MEDS ORDERED: cefTRIAXone\\ROCEPHIN 1 GM VIAL ONE (17:52)
[2020-12-21 18:23] LABS: Prothrombin Time 13.3 sec (12.0-14.7)
[2020-12-21 18:24] LABS: PTT 32.1 sec (22.9-36.1)
[2020-12-21] MEDS ORDERED: hydrALAZINE 20 MG/ML VIAL SLOW IVP PRN (18:42)
[2020-12-21] MEDS ORDERED: Labetalol HCl 100 MG/20 ML VIAL SLOW IVP PRN (18:42)
[2020-12-21 20:36] LABS: Troponin I Less than 0.010 ng/mL (< 0.028)
[2020-12-21] MEDS ORDERED: Ondansetron ODT 4 MG TAB PO PRN (20:37)
[2020-12-21] MEDS ORDERED: Ondansetron PF 4 MG/2 ML Vial IVP PRN (20:37)
[2020-12-21 21:22] LABS: Anion Gap 12 mmol/L (10-20); BUN (Urea Nitrogen) 14 mg/dL (9.8-20.1); Calc. Creatinine Clearance 35 mL/min (70-130); Calcium 8.8 mg/dL (7.8-10.44); Carbon Dioxide 21 mmol/L (23-31); Chloride 101 mmol/L (98-107); Glucose 93 mg/dL (83-110); Potassium 3.8 mmol/L (3.5-5.1); Sodium 130 mmol/L (136-145)
[2020-12-21 23:19] LABS: Troponin I Less than 0.010 ng/mL (< 0.028)
[2020-12-22 06:45] LABS: Anion Gap 10 mmol/L (10-20); BUN (Urea Nitrogen) 16 mg/dL (9.8-20.1); Calc. Creatinine Clearance 35 mL/min (70-130); Calcium 8.8 mg/dL (7.8-10.44); Carbon Dioxide 24 mmol/L (23-31); Chloride 102 mmol/L (98-107); Glucose 84 mg/dL (83-110); Potassium 3.6 mmol/L (3.5-5.1); Sodium 132 mmol/L (136-145)
[2020-12-22 07:23] LABS: Hemoglobin 11.1 g/dL (12.0-16.0); Mean Corpuscular HGB CONC 34.5 g/dL (32.0-36.0); Mean Corpuscular Hemoglobin 33.9 pg (27.0-31.0); Mean Corpuscular Volume 98.1 fL (78.0-98.0); Mean Platelet Volume 7.5 fL (7.4-10.4); Platelet Count 221 thou/uL (130-400); RBC Distribution Width 12.6 % (11.5-14.5); Red Blood Cell (RBC) Count 3.26 mill/uL (4.20-5.40); White Blood Cell (WBC) Count 2.9 thou/uL (4.8-10.8)
[2020-12-22 07:38] LABS: Band 11 % (5-11); Eosinophils 1 % (0-10); Lymphocytes 26 % (21-51); MDiff Complete? YES; Monocytes 13 % (0-10); Neutrophil 47 % (42-75); Platelet Morphology Comment Appears Adequate; Polychromasia SLIGHT = 2-3 cells (100X) (0-2/hpf); Reactive Lymphocytes 2 % (0-10)
[2020-12-22 08:09] LABS: Magnesium 1.9 mg/dL (1.6-2.6); Phosphorus 3.7 mg/dL (2.3-4.7)
[2020-12-22 08:52] VITALS: BMI 15.9
[2020-12-22] MEDS ORDERED: Electrolyte Replacement Protocol 1 EACH FS PRN (09:45)
[2020-12-22] MEDS: cefTRIAXone\\ROCEPHIN 1 GM in Sodium Chloride 0.9% 100 ML IVPB SCH (10:55)
[2020-12-22] MEDS: hydrALAZINE 25 MG TAB PO SCH ×3 (10:56→21:34)
[2020-12-22] MEDS: Amlodipine 5 MG TAB PO SCH (10:57)
[2020-12-22] MEDS: Lisinopril 20 MG TAB PO SCH (10:57)
[2020-12-22] MEDS: Gabapentin 100 MG CAP PO SCH ×3 (10:58→21:34)
[2020-12-22] MEDS ORDERED: Magnesium 2 GM/50 ML 2 GM in Premix Bag 1 BAG IVPB SCH (11:00)
[2020-12-22] MEDS: Acetaminophen 325 MG TAB PO PRN ×2 (14:30→21:33)
[2020-12-22] MEDS ORDERED: Simvastatin 5 MG TAB PO SCH (21:00)
[2020-12-23 05:24] LABS: Band 4 % (5-11); Eosinophils 1 % (0-10); Hemoglobin 10.7 g/dL (12.0-16.0); Lymphocytes 29 % (21-51); MDiff Complete? YES; Mean Corpuscular HGB CONC 35.1 g/dL (32.0-36.0); Mean Corpuscular Hemoglobin 34.4 pg (27.0-31.0); Mean Corpuscular Volume 97.9 fL (78.0-98.0); Mean Platelet Volume 7.5 fL (7.4-10.4); Metamyelocyte 1 % (0-0); Monocytes 14 % (0-10); Neutrophil 45 % (42-75); Platelet Count 208 thou/uL (130-400); Platelet Morphology Comment Appears Adequate; RBC Distribution Width 12.6 % (11.5-14.5); Reactive Lymphocytes 6 % (0-10); Red Blood Cell (RBC) Count 3.11 mill/uL (4.20-5.40); White Blood Cell (WBC) Count 2.4 thou/uL (4.8-10.8)
[2020-12-23 05:25] LABS: Anion Gap 12 mmol/L (10-20); BUN (Urea Nitrogen) 18 mg/dL (9.8-20.1); Calc. Creatinine Clearance 37 mL/min (70-130); Calcium 8.4 mg/dL (7.8-10.44); Carbon Dioxide 22 mmol/L (23-31); Chloride 99 mmol/L (98-107); Glucose 83 mg/dL (83-110); Potassium 3.8 mmol/L (3.5-5.1); Sodium 129 mmol/L (136-145)
[2020-12-23] MEDS ORDERED: Magnesium Oxide 250 MG TAB PO SCH (09:00)
[2020-12-23] MEDS: hydrALAZINE 25 MG TAB PO SCH ×2 (09:59→14:28)
[2020-12-23] MEDS: Gabapentin 100 MG CAP PO SCH ×2 (09:59→14:28)
[2020-12-23] MEDS: cefTRIAXone\\ROCEPHIN 1 GM in Sodium Chloride 0.9% 100 ML IVPB SCH (09:59)
[2020-12-23] MEDS: Amlodipine 5 MG TAB PO SCH (10:00)
[2020-12-23] MEDS: Lisinopril 20 MG TAB PO SCH (10:00)
[2020-12-23 11:34] VITALS: TEMP 98
[2020-12-23] MEDS ORDERED: Nitrofurantoin Monohyd/M-Cryst 100 MG CAP PO SCH ×2 (13:15→21:00)
[2020-12-23 14:31] VITALS: BP 158/71
[2020-12-23 17:12] LABS: SARS-CoV-2 PCR NAA for Saliva Not Detected (NotDetected)
== END 2020-12-23 15:20 | disposition home health service (06) | DRG 689 ==
LOC: ERS 15:31 → 2SE 18:30
PROVIDERS: ADMIT Internal Medicine; ATTEND Internal Medicine
DX: N30.00 Acute cystitis without hematuria (principal); I62.01 Nontraumatic acute subdural hemorrhage; I62.03 Nontraumatic chronic subdural hemorrhage; E87.1 Hypo-osmolality and hyponatremia; Z16.23 Resistance to quinolones and fluoroquinolones; Z66 Do not resuscitate; B96.20 Unspecified Escherichia coli [E. coli] as the cause of diseases classified elsewhere; E55.9 Vitamin D deficiency, unspecified; I08.3 Combined rheumatic disorders of mitral, aortic and tricuspid valves; I10 Essential (primary) hypertension; K21.9 Gastro-esophageal reflux disease without esophagitis; E78.5 Hyperlipidemia, unspecified; Z79.899 Other long term (current) drug therapy; Z88.5 Allergy status to narcotic agent; Z98.49 Cataract extraction status, unspecified eye
CPT/HCPCS: 36415; 70450; 80048; 80053; 81003; 81015; 82306; 83605; 83735; 84100; 84484; 85025; 85610; 85730; 87077; 87086; 87186; 93005; 93306; 96365; J0696; J3475; J3490; U0003; U0005

== ENCOUNTER 2021-04-17 11:31 | Outpatient (CLI) | payer MEDICARE, BC | END 2021-04-17 11:32 | disposition home or self-care (01) | LOC: BICRAD 11:31 | PROVIDERS: ATTEND Family Medicine | DX: M54.6 Pain in thoracic spine (principal); M43.8X4 Other specified deforming dorsopathies, thoracic region; M85.88 Other specified disorders of bone density and structure, other site; I70.0 Atherosclerosis of aorta | CPT/HCPCS: 72070 ==

== ENCOUNTER 2021-05-08 15:34 | Emergency (ER) | payer MEDICARE, BC ==
[2021-05-08] MEDS ORDERED: Ondansetron PF 4 MG/2 ML Vial ONE (16:02)
[2021-05-08] MEDS ORDERED: Metoclopramide HCl 10 MG/2 ML VIAL ONE (16:02)
[2021-05-08] MEDS ORDERED: Dicyclomine 20 MG TAB ONE (16:17)
[2021-05-08 16:30] LABS: #Lymphocytes 0.3 thou/uL (1.20-3.40); #Monocytes 0.3 thou/uL (0.11-0.59); #Neutrophils 8.5 thou/uL (1.40-6.50); %Eosinophils 0.4 % (0.0-10.0); %Lymphocytes 3.3 % (21.0-51.0); %Monocytes 3.4 % (0.0-10.0); %Neutrophils 92.9 % (42.0-75.0); Hemoglobin 12.1 g/dL (12.0-16.0); Mean Corpuscular HGB CONC 34.3 g/dL (32.0-36.0); Mean Corpuscular Hemoglobin 34.2 pg (27.0-31.0); Mean Corpuscular Volume 99.8 fL (78.0-98.0); Mean Platelet Volume 7.8 fL (7.4-10.4); Platelet Count 185 thou/uL (130-400); Red Blood Cell (RBC) Count 3.55 mill/uL (4.20-5.40); White Blood Cell (WBC) Count 9.1 thou/uL (4.8-10.8)
[2021-05-08 18:32] LABS: AST (SGOT) 25 U/L (5-34); Albumin 3.8 g/dL (3.4-4.8); Alkaline Phosphatase 75 U/L (40-110); Anion Gap 11 mmol/L (10-20); BUN (Urea Nitrogen) 15 mg/dL (9.8-20.1); Bilirubin, Total 0.4 mg/dL (0.2-1.2); CK (CPK) 59 U/L (29-168); Calc. Creatinine Clearance 0 mL/min (70-130); Calcium 8.3 mg/dL (7.8-10.44); Carbon Dioxide 23 mmol/L (23-31); Chloride 104 mmol/L (98-107); Globulin 2.9 g/dL (2.4-3.5); Glucose 107 mg/dL (83-110); Potassium 3.8 mmol/L (3.5-5.1); Protein, Total 6.7 g/dL (5.8-8.1); Sodium 134 mmol/L (136-145)
[2021-05-08 18:33] LABS: ALT (SGPT) 16 U/L (8-55)
== END 2021-05-08 19:41 | disposition home or self-care (01) ==
LOC: ERS 15:34
DX: R55 Syncope and collapse (principal); I10 Essential (primary) hypertension; E78.5 Hyperlipidemia, unspecified
CPT/HCPCS: 36415; 80053; 82550; 85025; 93005; 96374; J2405; J2765

== ENCOUNTER 2021-07-02 11:40 | Inpatient (IN) | payer MEDICARE, BC ==
[2021-07-02 14:23] LABS: #Lymphocytes 0.4 thou/uL (1.20-3.40); #Monocytes 0.6 thou/uL (0.11-0.59); #Neutrophils 5.1 thou/uL (1.40-6.50); %Basophils 0.1 % (0.0-1.0); %Eosinophils 0.1 % (0.0-10.0); %Lymphocytes 6.8 % (21.0-51.0); %Monocytes 9.2 % (0.0-10.0); %Neutrophils 83.9 % (42.0-75.0); Hemoglobin 12.7 g/dL (12.0-16.0); Mean Corpuscular HGB CONC 33.7 g/dL (32.0-36.0); Mean Corpuscular Hemoglobin 33.2 pg (27.0-31.0); Mean Corpuscular Volume 98.3 fL (78.0-98.0); Mean Platelet Volume 7.6 fL (7.4-10.4); Platelet Count 248 thou/uL (130-400); RBC Distribution Width 11.8 % (11.5-14.5); Red Blood Cell (RBC) Count 3.82 mill/uL (4.20-5.40)
[2021-07-02 14:28] LABS: ALT (SGPT) 14 U/L (8-55); AST (SGOT) 28 U/L (5-34); Alkaline Phosphatase 84 U/L (40-110); Anion Gap 17 mmol/L (10-20); BUN (Urea Nitrogen) 22 mg/dL (9.8-20.1); Bilirubin, Total 0.4 mg/dL (0.2-1.2); Calc. Creatinine Clearance 0 mL/min (70-130); Calcium 8.6 mg/dL (7.8-10.44); Carbon Dioxide 17 mmol/L (23-31); Chloride 98 mmol/L (98-107); Glucose 117 mg/dL (83-110); Potassium 4.3 mmol/L (3.5-5.1); Sodium 128 mmol/L (136-145)
[2021-07-02] MEDS ORDERED: Ondansetron PF 4 MG/2 ML Vial IVP PRN (17:00)
[2021-07-02] MEDS ORDERED: Ondansetron ODT 4 MG TAB SL PRN (17:00)
[2021-07-02] MEDS ORDERED: Acetaminophen 325 MG TAB PO PRN (17:00)
[2021-07-02] MEDS ORDERED: Sodium Chloride 0.9% 1,000 ML IV SCH (17:00)
[2021-07-02 17:15] LABS: Bilirubin Negative (Negative); Blood, Urine Negative (Negative); Clarity Turbid (Clear); Glucose, Urine (Dipstick) Normal (Negative); Ketone, Urine Trace mg/dL (Negative); Leukocyte 75 Leu/uL (Negative); Nitrite 2+ (Negative); Protein, Urine (Dipstick) Negative (Neg-Trace); RBC/HPF 0-3 HPF (0-3); Specific Gravity, Urine 1.009 (1.002-1.036); Squamous Epithelial 0-3 HPF (0-3); Urobilinogen Normal mg/dL (Less than 2); pH, Urine 6.5 (5.0-9.0)
[2021-07-02 17:18] LABS: Bacteria/HPF 2+ HPF (None Seen)
[2021-07-02 18:08] LABS: Troponin I Less than 0.010 ng/mL (< 0.028)
[2021-07-02] MEDS ORDERED: cefTRIAXone\\ROCEPHIN 1 GM VIAL ONE (18:13)
[2021-07-02] MEDS ORDERED: Senokot S 8.6-50 MG TAB PO PRN (20:48)
[2021-07-02] MEDS ORDERED: hydrALAZINE 25 MG TAB ONE (21:31)
[2021-07-02] MEDS: hydrALAZINE 25 MG TAB PO SCH (21:47)
[2021-07-02] MEDS: Simvastatin 10 MG TAB PO SCH (21:48)
[2021-07-02 22:05] LABS: Troponin I Less than 0.010 ng/mL (< 0.028)
[2021-07-02] MEDS: Gabapentin 100 MG CAP PO SCH (22:05)
[2021-07-03] MEDS ORDERED: Acetaminophen 325 MG TAB ONE (01:57)
[2021-07-03] MEDS ORDERED: Amlodipine 5 MG TAB ONE (08:48)
[2021-07-03 08:57] LABS: Mean Corpuscular HGB CONC 33.4 g/dL (32.0-36.0); Mean Corpuscular Hemoglobin 32.9 pg (27.0-31.0); Mean Corpuscular Volume 98.6 fL (78.0-98.0); Mean Platelet Volume 7.3 fL (7.4-10.4); Platelet Count 253 thou/uL (130-400); RBC Distribution Width 11.8 % (11.5-14.5); Red Blood Cell (RBC) Count 3.94 mill/uL (4.20-5.40); White Blood Cell (WBC) Count 4.4 thou/uL (4.8-10.8)
[2021-07-03] MEDS ORDERED: Enoxaparin Sodium 30 MG/0.3 ML SYRINGE SC SCH (09:00)
[2021-07-03 09:10] LABS: ALT (SGPT) 13 U/L (8-55); AST (SGOT) 25 U/L (5-34); Albumin 3.8 g/dL (3.4-4.8); Alkaline Phosphatase 82 U/L (40-110); Anion Gap 14 mmol/L (10-20); BUN (Urea Nitrogen) 10 mg/dL (9.8-20.1); Bilirubin, Total 0.4 mg/dL (0.2-1.2); Calc. Creatinine Clearance 0 mL/min (70-130); Calcium 8.6 mg/dL (7.8-10.44); Carbon Dioxide 22 mmol/L (23-31); Chloride 102 mmol/L (98-107); Globulin 3.3 g/dL (2.4-3.5); Glucose 120 mg/dL (83-110); Potassium 3.4 mmol/L (3.5-5.1); Protein, Total 7.1 g/dL (5.8-8.1); Sodium 135 mmol/L (136-145)
[2021-07-03 09:33] LABS: Band 3 % (5-11); Eosinophils 1 % (0-10); Lymphocytes 14 % (21-51); MDiff Complete? YES; Monocytes 7 % (0-10); Neutrophil 75 % (42-75); Platelet Morphology Comment Appears Adequate; RBC Morphology Normal
[2021-07-03] MEDS ORDERED: Potassium Chloride 20 MEQ TAB PO SCH (11:00)
[2021-07-03] MEDS: hydrALAZINE 25 MG TAB PO SCH ×2 (11:27→22:31)
[2021-07-03] MEDS: Amlodipine 5 MG TAB PO SCH (11:27)
[2021-07-03] MEDS: Gabapentin 100 MG CAP PO SCH ×3 (11:27→22:31)
[2021-07-03] MEDS ORDERED: Potassium Chloride 20 MEQ TAB ONE (12:21)
[2021-07-03] MEDS ORDERED: Lactated Ringer's 1,000 ML IV SCH (13:00)
[2021-07-03 13:44] LABS: SARS-CoV-2 PCR by NAA Not Detected (NotDetected)
[2021-07-03 14:00] LABS: Magnesium 1.8 mg/dL (1.6-2.6)
[2021-07-03] MEDS ORDERED: cefTRIAXone\\ROCEPHIN 1 GM VIAL ONE (18:46)
[2021-07-03] MEDS: cefTRIAXone\\ROCEPHIN 1 GM in Sodium Chloride 0.9% 100 ML IVPB SCH (18:55)
[2021-07-03] MEDS: Simvastatin 10 MG TAB PO SCH (22:31)
[2021-07-04 05:44] VITALS: BMI 16.0
[2021-07-04 06:01] LABS: Anion Gap 12 mmol/L (10-20); BUN (Urea Nitrogen) 11 mg/dL (9.8-20.1); Calc. Creatinine Clearance 41 mL/min (70-130); Calcium 8.4 mg/dL (7.8-10.44); Carbon Dioxide 21 mmol/L (23-31); Chloride 102 mmol/L (98-107); Glucose 85 mg/dL (83-110); Potassium 3.6 mmol/L (3.5-5.1); Sodium 131 mmol/L (136-145)
[2021-07-04] MEDS ORDERED: Potassium Chloride 20 MEQ TAB PO SCH (06:15)
[2021-07-04] MEDS: Amlodipine 5 MG TAB PO SCH (09:55)
[2021-07-04] MEDS: Gabapentin 100 MG CAP PO SCH ×3 (09:56→20:44)
[2021-07-04] MEDS: hydrALAZINE 25 MG TAB PO SCH (09:56)
[2021-07-04] MEDS: Sodium Chloride 1 GM TAB PO SCH ×3 (11:55→20:43)
[2021-07-04] MEDS: Sodium Bicarbonate Tab 325 MG TAB PO SCH ×2 (14:41→20:43)
[2021-07-04] MEDS: cefTRIAXone\\ROCEPHIN 1 GM in Sodium Chloride 0.9% 100 ML IVPB SCH (17:58)
[2021-07-04] MEDS ORDERED: Acetaminophen 325 MG TAB PO PRN (20:11)
[2021-07-04] MEDS: Simvastatin 10 MG TAB PO SCH (20:44)
[2021-07-05 07:55] LABS: Anion Gap 12 mmol/L (10-20); BUN (Urea Nitrogen) 13 mg/dL (9.8-20.1); Calc. Creatinine Clearance 36 mL/min (70-130); Calcium 8.8 mg/dL (7.8-10.44); Carbon Dioxide 23 mmol/L (23-31); Chloride 101 mmol/L (98-107); Glucose 86 mg/dL (83-110); Potassium 3.9 mmol/L (3.5-5.1); Sodium 132 mmol/L (136-145)
[2021-07-05] MEDS ORDERED: Amlodipine 5 MG TAB PO SCH (09:00)
[2021-07-05] MEDS: Sodium Bicarbonate Tab 325 MG TAB PO SCH (09:23)
[2021-07-05] MEDS: Gabapentin 100 MG CAP PO SCH (09:24)
[2021-07-05] MEDS: Sodium Chloride 1 GM TAB PO SCH (10:00)
[2021-07-05 11:41] VITALS: BP 144/64; TEMP 98.1
== END 2021-07-05 14:54 | disposition home or self-care (01) | DRG 314 ==
LOC: ERS 11:40 → ERHOLD 17:06 → 2NO 07-03 20:03 → OBSVTOIN 07-04 18:26
PROVIDERS: ADMIT Internal Medicine; ATTEND Internal Medicine
DX: I95.9 Hypotension, unspecified (principal); S06.5X9A Traumatic subdural hemorrhage with loss of consciousness of unspecified duration, initial encounter; N30.00 Acute cystitis without hematuria; E87.2 Acidosis; N17.9 Acute kidney failure, unspecified; E22.2 Syndrome of inappropriate secretion of antidiuretic hormone; E44.0 Moderate protein-calorie malnutrition; Z68.1 Body mass index [BMI] 19.9 or less, adult; I10 Essential (primary) hypertension; E78.5 Hyperlipidemia, unspecified; W19.XXXA Unspecified fall, initial encounter; G62.9 Polyneuropathy, unspecified; E87.6 Hypokalemia; E86.0 Dehydration; Z20.822 Contact with and (suspected) exposure to COVID-19; Z88.5 Allergy status to narcotic agent; Y92.000 Kitchen of unspecified non-institutional (private) residence as the place of occurrence of the external cause; Z79.899 Other long term (current) drug therapy; Z90.710 Acquired absence of both cervix and uterus
CPT/HCPCS: 36415; 70450; 71046; 72125; 72128; 72131; 80048; 80053; 81003; 81015; 83735; 83930; 83935; 84443; 84484; 85007; 85025; 85027; 93005; 93306; 93880; 94760; 96365; 96376; G0378; J0696; J3490; J7050; J7120; U0003; U0005